=== PATIENT | female | born 1985 | race Caucasian/White ===

== ENCOUNTER 2016-12-06 17:28 | Emergency (ER) | payer MEDICAID ==
[~2016-12-06] VITALS: Ht 177.8 cm; Wt 65.9 kg
[2016-12-06 17:36] VITALS: Ht 177.8 cm; Wt 65.9 kg
--- NOTE | 2016-12-06 17:44 | ERA ---
ER Documentation Chief Complaint Date/Time DATE: 12/06/16 TIME: 17:44 Chief Complaint "I WANT TO CUT MYSELF WITH RAZOR BLADE" HPI The patient is a 31-year-old female, presenting to the ER because of acute suicidal ideation. She complains of auditory hallucinations that asked her to cut herself. She denies visual hallucination, homicidal ideation. She denies headache, neck pain, chest pain, abdominal pain, vomiting, diarrhea, dysuria. She smokes, drinks, does not amphetamine Past medical history: Schizophrenia Past surgical history: 2 ROS All systems reviewed and are negative except as per history of present illness. Medications Home Meds No Active Prescriptions or Reported Meds Allergies Allergies: Coded Allergies: Penicillins (Verified Allergy, Mild, 08/24/16) PMhx/Soc Hx Psychiatric Problems: Yes (Schizophrenia) Hx Substance Use: Yes Physical Exam Vitals Vital Signs Date Time Temp Pulse Resp B/P Pulse Ox O2 Delivery O2 Flow Rate FiO2 12/06/16 17:36 98.2 129 19 138/95 100 Physical Exam Const: No acute distress. Head: Atraumatic. Eyes: Normal Conjunctiva. ENT: Normal External Ears, Nose and Mouth. Neck: Full range of motion. No meningismus. Resp: Clear to auscultation bilaterally. Cardio: Regular but tachycardic Abd: Soft, non distended, normal bowel sounds, non tender. Skin: No petechiae or rashes. Back: No midline or flank tenderness. Ext: No cyanosis, or edema. Neur: Awake and alert. No focal deficit Psych: Depressed and suicidal Procedures/MDM MEDICAL MAKING DECISION: The patient is a 31-year-old female, presenting with acute suicidal ideation, substance abuse. The differential diagnoses considered include but are not limited to psychosis, drug-induced psychosis, decompensated psychiatric unit, anxiety attack, panic attack Departure Diagnosis: Primary Impression: Suicidal ideation Additional Impression: Substance abuse Condition: Stable Comments The patient is awaiting further psychiatric evaluation, pending on the labs The patient's blood pressure was elevated (>120/80) but appears stable without evidence of hypertension emergency or urgency. The patient was counseled about the risks of hypertension and urged to pursue outpatient monitoring and therapy within a week with their primary care physician. NOEMI GOODE MD Dec 06, 2016 17:44
[2016-12-06 18:38] LABS: ADD UMIC YES; URINE BILIRUBIN (Dip) NEGATIVE (NEGATIVE); URINE BLOOD (Dip) NEGATIVE (NEGATIVE); URINE COLOR YELLOW (YELLOW); URINE GLUCOSE (Dip) NEGATIVE (NEGATIVE); URINE KETONES (Dip) NEGATIVE (NEGATIVE); URINE LEUKOCYTE ESTERASE (Dip) 3+ (NEGATIVE); URINE NITRITE (Dip) NEGATIVE (NEGATIVE); URINE TOTAL PROTEIN (Dip) TRACE (NEGATIVE); URINE UROBILINOGEN (Dip) 0.2 E.U./dL (0.1-1.0)
[2016-12-06 18:54] LABS: BASOPHILS % 0.3 % (0.0-2.0); EOSINOPHILS % 0.2 % (0.0-7.0); HEMATOCRIT 33.4 % (37.0-47.0); HEMOGLOBIN 10.6 g/dl (12.0-16.0); LYMPHOCYTES # 1.6 10^3/ul (0.8-2.9); LYMPHOCYTES % 11.7 % (15.0-51.0); MEAN CORPUSCULAR HEMOGLOBIN 21.4 pg (29.0-33.0); MEAN CORPUSCULAR HGB CONC 31.6 g/dl (32.0-37.0); MEAN CORPUSCULAR VOLUME 67.6 fl (82.0-101.0); MEAN PLATELET VOLUME 8.1 fl (7.4-10.4); MONOCYTE # 0.5 10^3/ul (0.3-0.9); MONOCYTES % 3.5 % (0.0-11.0); NEUTROPHIL # 11.5 10^3/ul (1.6-7.5); NEUTROPHILS % 84.3 % (39.0-77.0); PLATELET COUNT 546 10^3/UL (140-440); RED BLOOD COUNT 4.94 10^6/ul (4.20-5.40); RED CELL DISTRIBUTION WIDTH 19.5 % (11.5-14.5); UNCORRECTED WBC 13.6 10^3/ul (4.8-10.8); WHITE BLOOD COUNT 13.6 10^3/ul (4.8-10.8)
[2016-12-06 18:57] LABS: BACTERIA,URINE MANY; SQUAMOUS EPITHELIAL CELL,UR MANY; URINE RBCS NONE SEEN /HPF (0)
[2016-12-06 18:57] LABS: ALBUMIN 4.1 g/dl (3.3-4.9)
[2016-12-06 18:58] LABS: CHLORIDE 101 mmol/L (97-110); POTASSIUM 4.1 mmol/L (3.5-5.1); SODIUM 141 mmol/L (135-144)
[2016-12-06 19:00] LABS: ALKALINE PHOSPHATASE 107 IU/L (42-121); ANION GAP 18 (8-16); ASPARTATE AMINO TRANSFERASE 20 IU/L (15-46); BLOOD UREA NITROGEN 25 mg/dl (7-20); CARBON DIOXIDE 26 mmol/L (21-31); TOTAL PROTEIN 7.6 g/dl (6.1-8.1)
[2016-12-06 19:01] LABS: ALANINE AMINOTRANSFERASE 22 IU/L (13-69); ALBUMIN/GLOBULIN RATIO 1.17; CALCIUM 9.4 mg/dl (8.4-10.2); ETHANOL < 10.0 mg/dl; GLUCOSE 99 mg/dl (70-220); SALICYLATE < 1.0 mg/dl (5.0-30.0)
[2016-12-06 19:02] LABS: ACETAMINOPHEN < 10.0 ug/ml (10.0-30.0)
[2016-12-06 19:05] LABS: CONDITION 1; LH ANALYZER COMMENTS 1
[2016-12-06 19:08] LABS: BARBITURATES Negative (NEGATIVE); BENZODIAZEPINES Negative (NEGATIVE); CANNABINOIDS Negative (NEGATIVE); COCAINE Negative (NEGATIVE); OPIATES Negative (NEGATIVE)
[2016-12-06] MEDS ORDERED: TRIMETHOPRIM/SULFAMETHOX (DS) TAB PO ONE ×2 (19:30)
--- NOTE | 2016-12-06 19:51 | PSY ---
Date/Time of Note Date/Time of Note DATE: 12/06/16 TIME: 19:46 Psychiatric Subjective Eval Consent Pt consented to telemedicine: Yes Subjective Evaluation Patient location: emergency Chief Complaint: "I WANT TO CUT MYSELF WITH RAZOR BLADE" Reason for consult: Suicidal ideation History of present illness Patient is a 31 year old female diagnosed with schizophrenia six years ago who presents to the ER with complaints of command auditory hallucinations telling her to kill herself. Her voices are telling her to use a knife to cut herself. She has acted on these voices in the past and does not feel safe. She also reports meth use about four hours ago. Patient has been hospitalized in the past. She has fallen out of mental health treatment, however. She is not taking any medications nor does she have outpatient psychiatry/therapy. 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 [employer] Objective Eval Mental Status Examination: Appearance: Groomed Eye Contact: Fair Psychomotor Activity: Slow Behavior: Cooperative Speech: Monotone AFFECT: Flat Mood: Other (not distressed) Though Process: Linear Thought Content: Hallucinations Suicidal: Yes Homicidal: No On 72 hour hold: No Orientation: x3 Cognition: Alert Insight: Impared Judgement: Impared Laboratory Results Laboratory Tests Test 12/06/16 18:16 12/06/16 18:40 Urine Amorphous Urates MANY Urine Amphetamines Screen POSITIVE Urine Bacteria MANY Urine Barbiturates Negative Urine Benzodiazepines Screen Negative Urine Bilirubin NEGATIVE Urine Cannabinoids Negative Urine Clarity CLOUDY Urine Cocaine Screen Negative Urine Color YELLOW Urine Glucose NEGATIVE% Urine Hemoglobin NEGATIVE Urine Ketones NEGATIVE Urine Leukocyte Esterase 3+ Urine Microscopic RBC NONE SEEN/HPF Urine Microscopic WBC >50/HPF Urine Nitrite NEGATIVE Urine Opiates Screen Negative Urine Specific [place] 1.025 Urine Squamous Epithelial Cells MANY Urine Total Protein TRACE Urine Urobilinogen 0.2 E.U./dL Urine pH 7.0 Acetaminophen Level < 10.0ug/ml Alanine Aminotransferase (ALT/SGPT) 22IU/L Albumin 4.1g/dl Albumin/Globulin Ratio 1.17 Alkaline Phosphatase 107IU/L Anion Gap 18 Aspartate Amino Transf (AST/SGOT) 20IU/L Basophils # 0.010^3/ul Basophils % 0.3% Blood Morphology Comment Blood Urea Nitrogen 25mg/dl Calcium Level 9.4mg/dl Carbon Dioxide Level 26mmol/L Chloride Level 101mmol/L Creatinine 0.70mg/dl Direct Bilirubin 0.00mg/dl Eosinophils # 0.010^3/ul Eosinophils % 0.2% Ethyl Alcohol Level < 10.0mg/dl Globulin 3.50g/dl Glucose Level 99mg/dl Hematocrit 33.4% Hemoglobin 10.6g/dl Indirect Bilirubin 0.0mg/dl Lymphocytes # 1.610^3/ul Lymphocytes % 11.7% Mean Corpuscular Hemoglobin 21.4pg Mean Corpuscular Hemoglobin Concent 31.6g/dl Mean Corpuscular Volume 67.6fl Mean Platelet Volume 8.1fl Monocytes # 0.510^3/ul Monocytes % 3.5% Neutrophils # 11.510^3/ul Neutrophils % 84.3% Nucleated Red Blood Cells # 0.010^3/ul Nucleated Red Blood Cells % 0.0/100WBC Platelet Count 02342^3/UL Potassium Level 4.1mmol/L Red Blood Count 4.9410^6/ul Red Cell Distribution Width 19.5% Salicylates Level < 1.0mg/dl Sodium Level 141mmol/L Total Bilirubin 0.0mg/dl Total Protein 7.6g/dl White Blood Count 13.610^3/ul Assessment and Plan Assessment/Diagnosis [place] I: Unspecified Psychotic Disorder F29 - Schizophrenia versus Meth Use or combination of both. Recommendation/Plan Medication Management Per inpatient psychiatry Psychotherapy N.A Pt. Caregiver/Family Education N./A Follow-up/Disposition Recommend hold and transfer to inpatient psychiatry. Patient reporting command auditory hallucinations to kill herself and does not feel safe out of the hospital. 5150 Recommendation: Place Hold NATHALIA BHARDWAJ Dec 06, 2016 19:51
[2016-12-06] MEDS ORDERED: OLAN2.5T4 PO (20:07)
[2016-12-06 21:48] VITALS: BP 129/79; PULSE 110; RESP 16; TEMP 99
== END 2016-12-07 00:30 | disposition short-term general hospital (02) ==
LOC: E/R 17:28
DX: R44.0 Auditory hallucinations (principal); R45.851 Suicidal ideations; F19.90 Other psychoactive substance use, unspecified, uncomplicated; N30.00 Acute cystitis without hematuria; F17.210 Nicotine dependence, cigarettes, uncomplicated; E11.9 Type 2 diabetes mellitus without complications
CPT/HCPCS: 36415; 80053; 80306; 80307; 81001; 85025; Z7502; Z7610; 81003

== ENCOUNTER 2017-01-09 14:11 | Emergency (ER) | payer MEDICAID, OTHER ==
[~2017-01-09] VITALS: Wt 72.6 kg
[~2017-01-09 14:11] MED LIST: OLAN2.5T4 PO
[2017-01-09] MEDS ORDERED: LORAZEPAM 1 MG TAB PO ONE (14:30)
[2017-01-09 15:58] LABS: BASOPHILS % 0.2 % (0.0-2.0); EOSINOPHILS % 0.2 % (0.0-7.0); HEMATOCRIT 36.4 % (37.0-47.0); HEMOGLOBIN 11.8 g/dl (12.0-16.0); LYMPHOCYTES # 1.2 10^3/ul (0.8-2.9); LYMPHOCYTES % 9.5 % (15.0-51.0); MEAN CORPUSCULAR HEMOGLOBIN 22.2 pg (29.0-33.0); MEAN CORPUSCULAR HGB CONC 32.3 g/dl (32.0-37.0); MEAN CORPUSCULAR VOLUME 68.8 fl (82.0-101.0); MEAN PLATELET VOLUME 8.7 fl (7.4-10.4); MONOCYTE # 0.2 10^3/ul (0.3-0.9); MONOCYTES % 1.8 % (0.0-11.0); NEUTROPHIL # 11.4 10^3/ul (1.6-7.5); NEUTROPHILS % 88.3 % (39.0-77.0); PLATELET COUNT 378 10^3/UL (140-440); RED CELL DISTRIBUTION WIDTH 20.6 % (11.5-14.5); UNCORRECTED WBC 12.9 10^3/ul (4.8-10.8); WHITE BLOOD COUNT 12.9 10^3/ul (4.8-10.8)
[2017-01-09 15:58] LABS: ADD UMIC YES; URINE BILIRUBIN (Dip) NEGATIVE (NEGATIVE); URINE BLOOD (Dip) NEGATIVE (NEGATIVE); URINE GLUCOSE (Dip) NEGATIVE (NEGATIVE); URINE KETONES (Dip) NEGATIVE (NEGATIVE); URINE LEUKOCYTE ESTERASE (Dip) 3+ (NEGATIVE); URINE NITRITE (Dip) NEGATIVE (NEGATIVE); URINE TOTAL PROTEIN (Dip) TRACE (NEGATIVE); URINE UROBILINOGEN (Dip) 0.2 E.U./dL (0.1-1.0)
[2017-01-09 16:06] LABS: CONDITION 1; LH ANALYZER COMMENTS 1
[2017-01-09 16:07] LABS: URINE COLOR YELLOW (YELLOW)
[2017-01-09 16:11] LABS: BACTERIA,URINE MODERATE; SQUAMOUS EPITHELIAL CELL,UR MANY; URINE RBCS 0-2 /HPF (0)
[2017-01-09] MEDS ORDERED: CEPH-443 PO (16:14)
--- NOTE | 2017-01-09 16:20 | ERD ---
ER Documentation Chief Complaint Date/Time DATE: 01/09/17 TIME: 16:16 Chief Complaint SUICIDAL IDEATION FOR THE PAST DAY. NO ETOH. METH USE TODAY. HPI 31-year-old woman states she is here for evaluation for feeling anxious and suicidal after using methamphetamine about 2-3 hours ago while at home. She was just discharged from [facility] facility after a seven-day psychiatric admission. She was given psychiatric prescriptions and went home instead of filling her prescriptions and using them as prescribed she used methamphetamine. Patient has no definitive written or verbal plan on how she is going to kill herself. She has no homicidal ideation, she denies chest pain or shortness of breath, no vomiting or diarrhea, no headache or blurry vision. Patient denies hematuria or dysuria. ROS All systems reviewed and are negative except as per history of present illness. Medications Home Meds Active Scripts Cephalexin* (Keflex*) 500 Mg Capsule, 500 MG PO QID for 5 Days, CAP Prov:OLESYA PRESTON MD 01/09/17 Discontinued Reported Medications Olanzapine* (Zyprexa*) Unknown Strength Tablet, MG PO DAILY, #30 TAB 12/06/16 Allergies Allergies: Coded Allergies: Penicillins (Verified Allergy, Mild, 01/09/17) PMhx/Soc Drug abuse including methamphetamines, depression, schizophrenia History of Surgery: Yes ( x 2) Anesthesia Reaction: No Hx Neurological Disorder: No Hx Respiratory Disorders: No Hx Cardiac Disorders: No Hx Psychiatric Problems: Yes (Schizophrenia, depression) Hx Miscellaneous Medical Probl: Yes (diabetes) Hx Alcohol Use: Yes Hx Substance Use: Yes (meth) Hx Tobacco Use: Yes Smoking Status: Former smoker FmHx Family History: No diabetes Physical Exam Vitals Vital Signs Date Time Temp Pulse Resp B/P Pulse Ox O2 Delivery O2 Flow Rate FiO2 01/09/17 14:17 98.6 145 20 138/91 98 Physical Exam GENERAL: Well-developed, well-nourished, well-hydrated, in no apparent distress , looks nontoxic in appearance HEENT: Moist mucous membranes, pink conjunctiva, no cervical spine tenderness or step-off deformities, no goiter, no jaundice or icterus, extraocular movements intact without pain. No submandibular induration, and no pharyngeal erythema NEURO: Alert and oriented 3, cranial nerves II through XII intact bilaterally, pupils equal round reactive to light, no focal deficits or facial asymmetry, sensation intact distally Strength 5/5 in upper and lower extremities bilaterally CARDIAC: Regular rate and rhythm, no murmurs rubs or gallops LUNGS: Clear bilaterally no wheezing crackles or stridor ABDOMEN: Soft nontender, no guarding, no rigidity, no rebound, no psoas sign no obturator sign. Normoactive bowel sounds SKIN: Warm and dry to touch, no abrasions, contusions, or hematomas, no lacerations, no ecchymosis, no target lesions, and without ulcers EXTREMITIES: No clubbing cyanosis or edema, calves are bilaterally symmetrical, no Homans sign, no popliteal cord sign. Distal pulses equal and bilateral PSYCH: Normal affect without agitation or irritability Result Diagram: 01/09/17 1450 01/09/17 1450 Results 24 hrs Laboratory Tests Test 01/09/17 14:50 01/09/17 15:20 Acetaminophen Level < 10.0ug/ml Alanine Aminotransferase (ALT/SGPT) 24IU/L Albumin 4.4g/dl Albumin/Globulin Ratio 1.22 Alkaline Phosphatase 105IU/L Anion Gap 21 Aspartate Amino Transf (AST/SGOT) 26IU/L Basophils # 0.010^3/ul Basophils % 0.2% Blood Morphology Comment Blood Urea Nitrogen 30mg/dl Calcium Level 9.7mg/dl Carbon Dioxide Level 22mmol/L Chloride Level 105mmol/L Creatinine 0.93mg/dl Direct Bilirubin 0.00mg/dl Eosinophils # 0.010^3/ul Eosinophils % 0.2% Ethyl Alcohol Level < 10.0mg/dl Globulin 3.60g/dl Glucose Level 97mg/dl Hematocrit 36.4% Hemoglobin 11.8g/dl Indirect Bilirubin 0.0mg/dl Lymphocytes # 1.210^3/ul Lymphocytes % 9.5% Mean Corpuscular Hemoglobin 22.2pg Mean Corpuscular Hemoglobin Concent 32.3g/dl Mean Corpuscular Volume 68.8fl Mean Platelet Volume 8.7fl Monocytes # 0.210^3/ul Monocytes % 1.8% Neutrophils # 11.410^3/ul Neutrophils % 88.3% Nucleated Red Blood Cells # 0.010^3/ul Nucleated Red Blood Cells % 0.0/100WBC Platelet Count 44793^3/UL Potassium Level 4.4mmol/L Red Blood Count 5.3010^6/ul Red Cell Distribution Width 20.6% Salicylates Level < 1.0mg/dl Sodium Level 144mmol/L Total Bilirubin 0.0mg/dl Total Protein 8.0g/dl White Blood Count 12.910^3/ul Urine Amphetamines Screen Positive Urine Bacteria MODERATE Urine Barbiturates Negative Urine Benzodiazepines Screen Negative Urine Bilirubin NEGATIVE Urine Cannabinoids Negative Urine Clarity CLOUDY Urine Cocaine Screen Negative Urine Color YELLOW Urine Glucose NEGATIVE% Urine Hemoglobin NEGATIVE Urine Ketones NEGATIVE Urine Leukocyte Esterase 3+ Urine Microscopic RBC 0-2/HPF Urine Microscopic WBC >50/HPF Urine Nitrite NEGATIVE Urine Opiates Screen Negative Urine Specific [place] >=1.030 Urine Squamous Epithelial Cells MANY Urine Total Protein TRACE Urine Urobilinogen 0.2 E.U./dL Urine pH 6.0 Current Medications Medications (Trade) Dose Ordered Sig/Robbie Route PRN Reason Start Time Stop Time Status Last Admin Dose Admin Lorazepam (Ativan) 1 mg ONCE ONCE PO 01/09/17 14:30 01/09/17 14:34 DC 01/09/17 16:36 Cephalexin (Keflex) 500 mg ONCE ONCE PO 01/09/17 16:30 01/09/17 16:31 DC 01/09/17 16:36 Procedures/MDM Security one-to-one watch was established and tele-psychiatrist evaluation has been ordered. For her symptoms I administered lorazepam 1 mg p.o. with good response. CBC and electrolytes were normal, test was negative, urine analysis was concerning for urinary tract infection. I treated her here with cephalexin 500 mg p.o. 1. Patient's behavioral symptoms have stabilized while in the department. Patient is medically cleared and appropriate for psychiatric evaluation and work up. No e/o neurologic, toxic, infectious, or metabolic cause. I am comfortable discharging this patient after recommending she stop using methamphetamines and instead fill the psychiatric prescriptions that were given to her just today by her [facility] psychiatrist. I will also treat her as an outpatient for urinary tract infection with cephalexin 4 times daily 5 days. Tele-psychiatrist did evaluate the patient and felt comfortable placing her on a voluntary hold given her vague symptomatology and recent inpatient psychiatric workup. I reviewed the psychiatrist consultation note. I spoke to the patient and she feels much better and she agreed to stop using methamphetamines and to instead go home and fill her psychiatric medications and begin using them as prescribed. Differential diagnoses considered, included but not limited to acute intoxication, decompensated psychiatric illness, cervicitis, sepsis, stroke, meningitis, encephalitis, pneumonia, appendicitis, cholecystitis, bowel obstruction, pyelonephritis, nephrolithiasis, cystitis, as well as metabolic, hematologic, and electrolyte abnormalities. As well as abscess, cellulitis, fractures, and dislocations. Patient feels much better at this time, and vital signs are normal, symptoms have improved. I did give strict instructions to return to the ED if symptoms continue or worsen, patient will otherwise follow-up with primary care physician. Patient understood instructions and agreed to plan. Departure Diagnosis: Primary Impression: UTI (urinary tract infection) Urinary tract infection type: acute cystitis Hematuria presence: without hematuria Qualified Code: N30.00 - Acute cystitis without hematuria Additional Impressions: Methamphetamine abuse Psychosis Psychosis type: brief psychotic disorder Qualified Code: F23 - Brief psychotic disorder Condition: Good Patient Instructions: Understanding Methamphetamine Abuse and Addiction, Bladder Infection, Female (Adult) OLESYA PRESTON MD Jan 09, 2017 16:20
[2017-01-09] MEDS ORDERED: CEPHALEXIN 500 MG CAP PO ONE (16:30)
[2017-01-09 16:34] LABS: OPIATES Negative (NEGATIVE)
[2017-01-09 16:35] LABS: BARBITURATES Negative (NEGATIVE); BENZODIAZEPINES Negative (NEGATIVE); CANNABINOIDS Negative (NEGATIVE); COCAINE Negative (NEGATIVE)
[2017-01-09 16:37] LABS: ALBUMIN 4.4 g/dl (3.3-4.9); CHLORIDE 105 mmol/L (97-110)
[2017-01-09 16:38] LABS: POTASSIUM 4.4 mmol/L (3.5-5.1); SODIUM 144 mmol/L (135-144)
[2017-01-09 16:40] LABS: ALANINE AMINOTRANSFERASE 24 IU/L (13-69); ALBUMIN/GLOBULIN RATIO 1.22; ALKALINE PHOSPHATASE 105 IU/L (42-121); ANION GAP 21 (8-16); ASPARTATE AMINO TRANSFERASE 26 IU/L (15-46); BLOOD UREA NITROGEN 30 mg/dl (7-20); CARBON DIOXIDE 22 mmol/L (21-31); CREATININE 0.93 mg/dl (0.44-1.00); GLUCOSE 97 mg/dl (70-220)
[2017-01-09 16:41] LABS: CALCIUM 9.7 mg/dl (8.4-10.2)
[2017-01-09 16:44] LABS: ACETAMINOPHEN < 10.0 ug/ml (10.0-30.0); ETHANOL < 10.0 mg/dl; SALICYLATE < 1.0 mg/dl (5.0-30.0)
--- NOTE | 2017-01-09 19:09 | PSY ---
Date/Time of Note Date/Time of Note DATE: 01/09/17 TIME: 19:04 Psychiatric Subjective Eval Consent Pt consented to telemedicine: Yes Subjective Evaluation Patient location: emergency Chief Complaint: SUICIDAL IDEATION FOR THE PAST DAY. NO ETOH. METH USE TODAY. Reason for consult: Suicidal ideation History of present illness Patient is a 31 year old female with a history of schizophrenia and meth abuse who was recently released from an inpatient hospitalization. Patient went home. [place] unsafe. Started having suicidal thoughts with ideas of cutting herself with scissors. She reported command auditory hallucinations telling her to kill herself. She was discharged on medication but does recall the name of her medications. Past psychiatric history See above Hospitalization: yes Family History Denies Medical history Problems Medical Problems: (1) Methamphetamine abuse Status: Acute (2) Substance abuse Status: Acute (3) Suicidal ideation Status: Acute (4) UTI (urinary tract infection) Status: Acute Allergies: Coded Allergies: Penicillins (Verified Allergy, Mild, 12/06/16) Substance Abuse Substance use: No known substance abuse Substance abuse history: Yes Social History Marital status: single DPA/Conservatorship: No Occupation/Fci: Unemployed Psychiatric Objective Eval Mental Status Examination: Appearance: Groomed Eye Contact: Fair Psychomotor Activity: Slow Behavior: Cooperative Speech: Clear AFFECT: Other (Superficial and inappropriate) Mood: Depressed Though Process: Linear Thought Content: Hallucinations Suicidal: Yes Homicidal: No On 72 hour hold: No Orientation: x4 Cognition: Alert Insight: Impared Judgement: Impared Laboratory Results Laboratory Tests Test 01/09/17 14:50 01/09/17 15:20 Acetaminophen Level < 10.0ug/ml Alanine Aminotransferase (ALT/SGPT) 24IU/L Albumin 4.4g/dl Albumin/Globulin Ratio 1.22 Alkaline Phosphatase 105IU/L Anion Gap 21 Aspartate Amino Transf (AST/SGOT) 26IU/L Basophils # 0.010^3/ul Basophils % 0.2% Blood Morphology Comment Blood Urea Nitrogen 30mg/dl Calcium Level 9.7mg/dl Carbon Dioxide Level 22mmol/L Chloride Level 105mmol/L Creatinine 0.93mg/dl Direct Bilirubin 0.00mg/dl Eosinophils # 0.010^3/ul Eosinophils % 0.2% Ethyl Alcohol Level < 10.0mg/dl Globulin 3.60g/dl Glucose Level 97mg/dl Hematocrit 36.4% Hemoglobin 11.8g/dl Indirect Bilirubin 0.0mg/dl Lymphocytes # 1.210^3/ul Lymphocytes % 9.5% Mean Corpuscular Hemoglobin 22.2pg Mean Corpuscular Hemoglobin Concent 32.3g/dl Mean Corpuscular Volume 68.8fl Mean Platelet Volume 8.7fl Monocytes # 0.210^3/ul Monocytes % 1.8% Neutrophils # 11.410^3/ul Neutrophils % 88.3% Nucleated Red Blood Cells # 0.010^3/ul Nucleated Red Blood Cells % 0.0/100WBC Platelet Count 67090^3/UL Potassium Level 4.4mmol/L Red Blood Count 5.3010^6/ul Red Cell Distribution Width 20.6% Salicylates Level < 1.0mg/dl Sodium Level 144mmol/L Total Bilirubin 0.0mg/dl Total Protein 8.0g/dl White Blood Count 12.910^3/ul Urine Amphetamines Screen Positive Urine Bacteria MODERATE Urine Barbiturates Negative Urine Benzodiazepines Screen Negative Urine Bilirubin NEGATIVE Urine Cannabinoids Negative Urine Clarity CLOUDY Urine Cocaine Screen Negative Urine Color YELLOW Urine Glucose NEGATIVE% Urine Hemoglobin NEGATIVE Urine Ketones NEGATIVE Urine Leukocyte Esterase 3+ Urine Microscopic RBC 0-2/HPF Urine Microscopic WBC >50/HPF Urine Nitrite NEGATIVE Urine Opiates Screen Negative Urine Specific [place] >=1.030 Urine Squamous Epithelial Cells MANY Urine Total Protein TRACE Urine Urobilinogen 0.2 E.U./dL Urine pH 6.0 Assessment and Plan Assessment/Diagnosis [place] I: Unspecified psychotic disorder, Stimulant Use Disorder Recommendation/Plan Medication Management Per inpatient psychiatry Psychotherapy N/A Pt. Caregiver/Family Education N/A Follow-up/Disposition Please transfer to inpatient psychiatry. Patient is willing to go and can transfer voluntarily. If a 5150 is needed for transport, it can be justified based on danger to self. 5150 Recommendation: Voluntary admission unless needed for transport. NATHALIA BHARDWAJ Jan 09, 2017 19:09
[2017-01-09 19:31] VITALS: BP 134/88; PULSE 107; RESP 20; TEMP 98.3
== END 2017-01-09 19:31 | disposition home or self-care (01) ==
LOC: E/R 14:11
DX: N30.00 Acute cystitis without hematuria (principal); F23 Brief psychotic disorder; F15.10 Other stimulant abuse, uncomplicated; E11.9 Type 2 diabetes mellitus without complications; F17.210 Nicotine dependence, cigarettes, uncomplicated
CPT/HCPCS: 80053; 80306; 80307; 81001; 85025; Z7502; Z7610; 81003; 99285

== ENCOUNTER 2017-04-17 19:04 | Emergency (ER) | payer OTHER ==
[~2017-04-17] VITALS: Ht 175.3 cm; Wt 65.9 kg
[~2017-04-17 19:04] MED LIST changes: +CEPH-443 PO; -OLAN2.5T4 PO
[2017-04-17 19:13] VITALS: Ht 175.3 cm; Wt 65.9 kg
[2017-04-17 21:30] VITALS: BP 131/81; PULSE 95; RESP 16; TEMP 98.9
[2017-04-17 21:34] LABS: ADD SCAN DIFF NO
[2017-04-17 21:37] LABS: BASOPHILS % 0.4 % (0.0-2.0); EOSINOPHILS # 0.2 10^3/ul (0.0-0.5); EOSINOPHILS % 2.3 % (0.0-7.0); HEMATOCRIT 38.4 % (37.0-47.0); HEMOGLOBIN 11.5 g/dl (12.0-16.0); LYMPHOCYTES # 2.1 10^3/ul (0.8-2.9); LYMPHOCYTES % 20.9 % (15.0-51.0); MEAN CORPUSCULAR HEMOGLOBIN 23.4 pg (29.0-33.0); MEAN CORPUSCULAR HGB CONC 29.9 g/dl (32.0-37.0); MEAN CORPUSCULAR VOLUME 78.2 fl (82.0-101.0); MEAN PLATELET VOLUME 9.8 fl (7.4-10.4); MONOCYTE # 0.6 10^3/ul (0.3-0.9); MONOCYTES % 6.4 % (0.0-11.0); NEUTROPHIL # 6.9 10^3/ul (1.6-7.5); NEUTROPHILS % 69.6 % (39.0-77.0); PLATELET COUNT 373 10^3/UL (140-415); RED BLOOD COUNT 4.91 10^6/ul (4.20-5.40); RED CELL DISTRIBUTION WIDTH 20.5 % (11.5-14.5); WHITE BLOOD COUNT 9.9 10^3/ul (4.8-10.8)
[2017-04-17 22:01] LABS: ALANINE AMINOTRANSFERASE 36 IU/L (13-69); ALBUMIN 3.9 g/dl (3.3-4.9); ALBUMIN/GLOBULIN RATIO 1.02; ALKALINE PHOSPHATASE 101 IU/L (42-121); ANION GAP 9 (8-16); ASPARTATE AMINO TRANSFERASE 20 IU/L (15-46); BLOOD UREA NITROGEN 13 mg/dl (7-20); CALCIUM 9.1 mg/dl (8.4-10.2); CARBON DIOXIDE 28 mmol/L (21-31); CHLORIDE 106 mmol/L (97-110); CREATININE 0.66 mg/dl (0.44-1.00); GLUCOSE 101 mg/dl (70-220); POTASSIUM 4.1 mmol/L (3.5-5.1); SODIUM 139 mmol/L (135-144); TOTAL PROTEIN 7.7 g/dl (6.1-8.1)
[2017-04-17 22:16] LABS: ACETAMINOPHEN < 10.0 ug/ml (10.0-30.0); ETHANOL < 10.0 mg/dl; SALICYLATE < 1.0 mg/dl (5.0-30.0)
[2017-04-17] MEDS ORDERED: DIPHENHYDRAMINE 50 MG INJ IM ONE (22:30)
[2017-04-17 22:48] LABS: ADD UMIC YES; URINE BILIRUBIN (Dip) NEGATIVE (NEGATIVE); URINE BLOOD (Dip) NEGATIVE (NEGATIVE); URINE COLOR LT. YELLOW (YELLOW); URINE GLUCOSE (Dip) NEGATIVE (NEGATIVE); URINE KETONES (Dip) NEGATIVE (NEGATIVE); URINE LEUKOCYTE ESTERASE (Dip) 1+ (NEGATIVE); URINE NITRITE (Dip) NEGATIVE (NEGATIVE); URINE TOTAL PROTEIN (Dip) NEGATIVE (NEGATIVE); URINE UROBILINOGEN (Dip) 0.2 E.U./dL (0.1-1.0)
--- NOTE | 2017-04-17 22:54 | PSY ---
Date/Time of Note Date/Time of Note DATE: 04/17/17 TIME: 22:48 Psychiatric Subjective Eval Consent Pt consented to telemedicine: Yes Subjective Evaluation Patient location: emergency Chief Complaint: STATES SI BUT NO PLAN +DRUG USE METH TODAY. Reason for consult: Evaluate suicidal ideation History of present illness Pt reports depression and suicidal ideation about four hours ago. She has just used meth, got scared and came to the ER. However, she is now reporting to ER personnel and to me that she feels better. She states she is not suicidal. Pt reports that she "ate a meal" and rested. She now would like to go home. Pt reports her moods are good. She denies hallucinations and delusions. She has no access to guns or other means. Pt does not want to be admitted to inpatient psychiatry. Past psychiatric history Was admitted to an inpatient unit one month ago. Was given Zyprexa. Did not continue with the medication because did not think it did anything. She has no outpatient care. She admits to meth use. Hospitalization: yes Family History Denies Medical history Problems Medical Problems: (1) Methamphetamine abuse Status: Acute (2) Psychosis Status: Acute (3) Substance abuse Status: Acute (4) Suicidal ideation Status: Acute (5) UTI (urinary tract infection) Status: Acute Allergies: Coded Allergies: Penicillins (Verified Allergy, Mild, 04/17/17) Substance Abuse Substance abuse history: Yes (Meth) Prior substance abuse treatmen: No (Not interested in treatment or help at this time) Social History Marital status: single Level of education: HS DPA/Conservatorship: No Occupation/Group Home: N/A Psychiatric Objective Eval Mental Status Examination: Appearance: Groomed Eye Contact: Good Psychomotor Activity: Normal Behavior: Friendly, Cooperative Speech: Clear AFFECT: Appropriate Mood: Appropriate/Full Though Process: Linear Thought Content: Normal Suicidal: No Homicidal: No On 72 hour hold: No Cognition: Alert Insight: Intact Judgement: Impared Attention Span: Intact Laboratory Results Laboratory Tests Test 04/17/17 21:23 04/17/17 22:16 White Blood Count 9.910^3/ul Red Blood Count 4.9110^6/ul Hemoglobin 11.5g/dl Hematocrit 38.4% Mean Corpuscular Volume 78.2fl Mean Corpuscular Hemoglobin 23.4pg Mean Corpuscular Hemoglobin Concent 29.9g/dl Red Cell Distribution Width 20.5% Platelet Count 43943^3/UL Mean Platelet Volume 9.8fl Neutrophils % 69.6% Lymphocytes % 20.9% Monocytes % 6.4% Eosinophils % 2.3% Basophils % 0.4% Nucleated Red Blood Cells % 0.0/100WBC Neutrophils # 6.910^3/ul Lymphocytes # 2.110^3/ul Monocytes # 0.610^3/ul Eosinophils # 0.210^3/ul Basophils # 0.010^3/ul Nucleated Red Blood Cells # 0.010^3/ul Sodium Level 139mmol/L Potassium Level 4.1mmol/L Chloride Level 106mmol/L Carbon Dioxide Level 28mmol/L Anion Gap 9 Blood Urea Nitrogen 13mg/dl Creatinine 0.66mg/dl Glucose Level 101mg/dl Calcium Level 9.1mg/dl Total Bilirubin 0.0mg/dl Direct Bilirubin 0.00mg/dl Indirect Bilirubin 0.0mg/dl Aspartate Amino Transf (AST/SGOT) 20IU/L Alanine Aminotransferase (ALT/SGPT) 36IU/L Alkaline Phosphatase 101IU/L Total Protein 7.7g/dl Albumin 3.9g/dl Globulin 3.80g/dl Albumin/Globulin Ratio 1.02 Salicylates Level < 1.0mg/dl Acetaminophen Level < 10.0ug/ml Ethyl Alcohol Level < 10.0mg/dl Urine Color LT. YELLOW Urine Clarity CLEAR Urine pH 6.5 Urine Specific [place] 1.020 Urine Ketones NEGATIVE Urine Nitrite NEGATIVE Urine Bilirubin NEGATIVE Urine Urobilinogen 0.2 E.U./dL Urine Leukocyte Esterase 1+ Urine Hemoglobin NEGATIVE Urine Glucose NEGATIVE% Urine Total Protein NEGATIVE Assessment and Plan Assessment/Diagnosis [place] I: Stimulant Use Disorder, Unspecified Anxiety Disorder Recommendation/Plan Medication Management None recommended. Discussed with her restarting Zyprexa. Pt declines. Psychotherapy Psychoeducation regarding meth Pt. Caregiver/Family Education N/A Follow-up/Disposition Discharge to self. Pt given option of inpatient psychiatry. Does not want to go. She does not appear to meet the criteria for involuntary hold. Recommend she consider local resources for support to stay sober. NATHALIA BHARDWAJ April 17, 2017 22:54
[2017-04-17 22:59] LABS: BACTERIA,URINE OCCASIONAL
[2017-04-17 23:31] LABS: BARBITURATES NEGATIVE (NEGATIVE); BENZODIAZEPINES NEGATIVE (NEGATIVE); CANNABINOIDS NEGATIVE (NEGATIVE); COCAINE NEGATIVE (NEGATIVE); OPIATES NEGATIVE (NEGATIVE)
--- NOTE | 2017-04-17 23:51 | ERD ---
ER Documentation Chief Complaint Date/Time DATE: 04/17/17 TIME: 23:47 Chief Complaint STATES SI BUT NO PLAN +DRUG USE METH TODAY. HPI This 31-year-old female comes the emergency room feeling like she wants to hurt herself. She admits to taking meth earlier and it made her feel paranoid. States that she does not have any actual plan to hurt herself but got scared. She denies any other physical symptoms. She has no pain currently. ROS All systems reviewed and are negative except as per history of present illness. Medications Home Meds Discontinued Scripts Cephalexin* (Keflex*) 500 Mg Capsule, 500 MG PO QID for 5 Days, CAP Prov:OLESYA PRESTON MD 01/09/17 Allergies Allergies: Coded Allergies: Penicillins (Verified Allergy, Mild, 04/17/17) PMhx/Soc History of Surgery: Yes ( x 2) Anesthesia Reaction: No Hx Neurological Disorder: No Hx Respiratory Disorders: No Hx Cardiac Disorders: No Hx Psychiatric Problems: Yes (Schizophrenia, depression) Hx Miscellaneous Medical Probl: Yes (diabetes) Hx Alcohol Use: Yes (socially) Hx Substance Use: Yes (meth) Hx Tobacco Use: Yes Smoking Status: Unknown if ever smoked Physical Exam Vitals Vital Signs Date Time Temp Pulse Resp B/P Pulse Ox O2 Delivery O2 Flow Rate FiO2 04/17/17 19:13 99.1 115 18 139/87 99 Physical Exam Const: [] No distress Head: Atraumatic Eyes: Normal Conjunctiva, EOMI, PERRLA ENT: Normal External Ears, Nose and Mouth. Neck: Full range of motion..~ No meningismus. Resp: Clear to auscultation bilaterally Cardio: Regular mild tachycardia, no murmurs Abd: Soft, non tender, non distended. Normal bowel sounds Skin: No petechiae or rashes Back: No midline or flank tenderness Ext: No cyanosis, or edema Neur: Awake and alert and oriented 3, cranial nerves II through XII intact, no cerebellar deficit Psych: Appears anxious Result Diagram: 04/17/17212204/17/172122 Results 24 hrs Laboratory Tests Test 04/17/17 21:23 04/17/17 22:16 White Blood Count 9.910^3/ul Red Blood Count 4.9110^6/ul Hemoglobin 11.5g/dl Hematocrit 38.4% Mean Corpuscular Volume 78.2fl Mean Corpuscular Hemoglobin 23.4pg Mean Corpuscular Hemoglobin Concent 29.9g/dl Red Cell Distribution Width 20.5% Platelet Count 87608^3/UL Mean Platelet Volume 9.8fl Neutrophils % 69.6% Lymphocytes % 20.9% Monocytes % 6.4% Eosinophils % 2.3% Basophils % 0.4% Nucleated Red Blood Cells % 0.0/100WBC Neutrophils # 6.910^3/ul Lymphocytes # 2.110^3/ul Monocytes # 0.610^3/ul Eosinophils # 0.210^3/ul Basophils # 0.010^3/ul Nucleated Red Blood Cells # 0.010^3/ul Sodium Level 139mmol/L Potassium Level 4.1mmol/L Chloride Level 106mmol/L Carbon Dioxide Level 28mmol/L Anion Gap 9 Blood Urea Nitrogen 13mg/dl Creatinine 0.66mg/dl Glucose Level 101mg/dl Calcium Level 9.1mg/dl Total Bilirubin 0.0mg/dl Direct Bilirubin 0.00mg/dl Indirect Bilirubin 0.0mg/dl Aspartate Amino Transf (AST/SGOT) 20IU/L Alanine Aminotransferase (ALT/SGPT) 36IU/L Alkaline Phosphatase 101IU/L Total Protein 7.7g/dl Albumin 3.9g/dl Globulin 3.80g/dl Albumin/Globulin Ratio 1.02 Salicylates Level < 1.0mg/dl Acetaminophen Level < 10.0ug/ml Ethyl Alcohol Level < 10.0mg/dl Urine Color LT. YELLOW Urine Clarity CLEAR Urine pH 6.5 Urine Specific [place] 1.020 Urine Ketones NEGATIVE Urine Nitrite NEGATIVE Urine Bilirubin NEGATIVE Urine Urobilinogen 0.2 E.U./dL Urine Leukocyte Esterase 1+ Urine Microscopic RBC 2-5/HPF Urine Microscopic WBC 5-10/HPF Urine Epithelial Cells FEW Urine Bacteria OCCASIONAL Urine Hemoglobin NEGATIVE Urine Glucose NEGATIVE% Urine Total Protein NEGATIVE Urine Opiates Screen NEGATIVE Urine Barbiturates NEGATIVE Urine Amphetamines Screen Pending Urine Benzodiazepines Screen NEGATIVE Urine Cocaine Screen NEGATIVE Urine Cannabinoids NEGATIVE Current Medications Medications (Trade) Dose Ordered Sig/Robbie Route PRN Reason Start Time Stop Time Status Last Admin Dose Admin Diphenhydramine HCl (Benadryl) 50 mg ONCE ONCE IM 04/17/17 22:30 04/17/17 22:38 DC Procedures/MDM Methamphetamine abuse. She initially had thoughts of hurting herself. She was observed for several hours in the emergency room. After the first 45 minutes she stated that she was feeling much better and did not want to hurt herself and thought that she should not have been methamphetamines. Laboratories were obtained and the patient was medically cleared. Eventually she was evaluated by tele-psychiatry and still felt well and did not want to harm herself. Tachycardia resolved. I reinterviewed her and she is calm and reasonable. I talked to her about methamphetamine abuse and agree with discharging her in stable condition currently. Providing her list of substance abuse outpatient resources. Departure Diagnosis: Primary Impression: Methamphetamine abuse Condition: Stable Patient Instructions: Understanding Methamphetamine Abuse and Addiction Referrals: [facility] YOU HAVE RECEIVED A MEDICAL SCREENING EXAM AND THE RESULTS INDICATE THAT YOU DO NOT HAVE A CONDITION THAT REQUIRES URGENT TREATMENT IN THE EMERGENCY DEPARTMENT. FURTHER EVALUATION AND TREATMENT OF YOUR CONDITION CAN WAIT UNTIL YOU ARE SEEN IN YOUR DOCTORS OFFICE WITHIN THE NEXT 1-2 DAYS. IT IS YOUR RESPONSIBILITY TO MAKE AN APPOINTMENT FOR FOLOW-UP CARE. IF YOU HAVE A PRIMARY DOCTOR --you should call your primary doctor and schedule an appointment IF YOU DO NOT HAVE A PRIMARY DOCTOR YOU CAN CALL OUR PHYSICIAN REFERRAL HOTLINE AT IF YOU CAN NOT AFFORD TO SEE A PHYSICIAN YOU CAN CHOSE FROM THE FOLLOWING [facility] [address] [facility]. [facility] [address] [facility] [address] [facility] [address] [facility]. [facility] [place] [address] [facility]. [facility]. [address] Additional Instructions: Call your primary care doctor TOMORROW for an appointment during the next 1-2 days.See the doctor sooner or return here if your condition worsens before your appointment time. SHIRA MELTON DO April 17, 2017 23:51
[2017-04-18] MEDS ORDERED: LORAZEPAM 2 MG INJ IM ONE (00:30)
== END 2017-04-18 00:30 | disposition home or self-care (01) ==
LOC: E/R 19:04
DX: F15.10 Other stimulant abuse, uncomplicated (principal); E11.9 Type 2 diabetes mellitus without complications
CPT/HCPCS: 36415; 80053; 80306; 80307; 81001; 85025; Z7502; 99283

== ENCOUNTER 2017-05-11 21:18 | Emergency (ER) | payer OTHER ==
[~2017-05-11] VITALS: Ht 175.3 cm; Wt 68.0 kg
[2017-05-11 21:26] VITALS: Ht 175.3 cm; Wt 68.0 kg
[2017-05-11 21:57] LABS: URINE BLOOD (Dip) POC Negative (NEGATIVE)
--- NOTE | 2017-05-11 22:01 | ERA ---
ER Documentation Chief Complaint Date/Time DATE: 05/11/17 TIME: 22:00 Chief Complaint suicide thoughts no plan,depression,last meth used at 1500 today HPI The patient is a 31-year-old female, presenting to the ER because of acute suicidal ideation, denies any plan. She has not been taking her psychotropic medication, denies auditory or visual hallucination. She denies headache, neck pain, chest pain, dyspnea, abdominal pain, dysuria, diarrhea.. She does not drink, smokes socially, has been doing amphetamine Past medical history: Depression, anxiety, schizophrenia Past surgical history: None ROS All systems reviewed and are negative except as per history of present illness. Medications Home Meds Reported Medications Bupropion Hcl* (Wellbutrin SR*) Unknown Strength Tablet.sa, PO BID, TAB.SA 05/11/17 Allergies Allergies: Coded Allergies: Penicillins (Unverified Allergy, Mild, 05/11/17) PMhx/Soc History of Surgery: Yes ( x 2) Anesthesia Reaction: No Hx Neurological Disorder: No Hx Respiratory Disorders: No Hx Cardiac Disorders: No Hx Psychiatric Problems: Yes (Schizophrenia, depression) Hx Miscellaneous Medical Probl: Yes (diabetes) Hx Alcohol Use: Yes (socially) Hx Substance Use: Yes (meth) Hx Tobacco Use: Yes Physical Exam Vitals Vital Signs Date Time Temp Pulse Resp B/P Pulse Ox O2 Delivery O2 Flow Rate FiO2 05/11/17 21:26 98.9 122 18 131/80 99 Physical Exam Const: No acute distress. Head: Atraumatic. Eyes: Normal Conjunctiva. ENT: Normal External Ears, Nose and Mouth. Neck: Full range of motion. No meningismus. Resp: Clear to auscultation bilaterally. Cardio: Regular tachycardic Abd: Soft, non distended, normal bowel sounds, non tender. Skin: No petechiae or rashes. Back: No midline or flank tenderness. Ext: No cyanosis, or edema. Neur: Awake and alert. No focal deficit Psych: Depressed and suicidal. Result Diagram: 05/11/17222905/11/[id number] Results 24 hrs Laboratory Tests Test 05/11/17 21:50 05/11/17 22:00 05/11/17 22:30 Urine Color YELLOW Urine Clarity CLOUDY Urine pH 6.0 Urine Specific [place] 1.025 Urine Ketones NEGATIVE Urine Nitrite NEGATIVE Urine Bilirubin NEGATIVE Urine Urobilinogen 0.2 E.U./dL Urine Leukocyte Esterase 3+ Urine Microscopic RBC NONE SEEN/HPF Urine Microscopic WBC >50/HPF Urine Squamous Epithelial Cells MANY Urine Bacteria MODERATE Urine Trichomonas MANY Urine Hemoglobin NEGATIVE Urine Glucose NEGATIVE% Urine Total Protein TRACE Urine Opiates Screen Negative Urine Barbiturates Negative Urine Amphetamines Screen POSITIVE Urine Benzodiazepines Screen Negative Urine Cocaine Screen Negative Urine Cannabinoids Negative Bedside Urine pH (LAB) 6.0 Bedside Urine Protein (LAB) 1+ Bedside Urine Glucose (UA) Negative Bedside Urine Ketones (LAB) Trace Bedside Urine Blood Negative Bedside Urine Nitrite (LAB) Negative Bedside Urine Leukocyte Esterase (L 3+ White Blood Count 7.610^3/ul Red Blood Count 4.4710^6/ul Hemoglobin 10.5g/dl Hematocrit 34.5% Mean Corpuscular Volume 77.2fl Mean Corpuscular Hemoglobin 23.5pg Mean Corpuscular Hemoglobin Concent 30.4g/dl Red Cell Distribution Width 19.1% Platelet Count 94614^3/UL Mean Platelet Volume 10.0fl Neutrophils % 58.2% Lymphocytes % 29.2% Monocytes % 6.9% Eosinophils % 4.3% Basophils % 0.5% Nucleated Red Blood Cells % 0.0/100WBC Neutrophils # 4.410^3/ul Lymphocytes # 2.210^3/ul Monocytes # 0.510^3/ul Eosinophils # 0.310^3/ul Basophils # 0.010^3/ul Nucleated Red Blood Cells # 0.010^3/ul Sodium Level 139mmol/L Potassium Level 4.0mmol/L Chloride Level 104mmol/L Carbon Dioxide Level 28mmol/L Anion Gap 11 Blood Urea Nitrogen 14mg/dl Creatinine 0.62mg/dl Glucose Level 86mg/dl Calcium Level 9.0mg/dl Total Bilirubin 0.0mg/dl Direct Bilirubin 0.00mg/dl Indirect Bilirubin 0.0mg/dl Aspartate Amino Transf (AST/SGOT) 26IU/L Alanine Aminotransferase (ALT/SGPT) 28IU/L Alkaline Phosphatase 90IU/L Total Protein 7.0g/dl Albumin 4.1g/dl Globulin 2.90g/dl Albumin/Globulin Ratio 1.41 Serum HCG, Qualitative NEGATIVE Salicylates Level < 1.0mg/dl Acetaminophen Level < 10.0ug/ml Ethyl Alcohol Level < 10.0mg/dl Current Medications Medications (Trade) Dose Ordered Sig/Robbie Route PRN Reason Start Time Stop Time Status Last Admin Dose Admin Trimethoprim/ Sulfamethoxazole (Bactrim (Ds)) 1 tab ONCE ONCE PO 05/11/17 23:30 05/11/17 23:31 DC 05/11/17 23:14 Procedures/MDM MEDICAL MAKING DECISION: The patient is a 31-year-old female, presenting with acute suicidal ideation, acute cystitis, acute amphetamine abuse. She was treated with Bactrim DS for acute cystitis The differential diagnoses considered include but are not limited to drug- induced psychosis, psychosis, decompensated psychiatric illness, anxiety attack , panic attack Departure Diagnosis: Primary Impression: Suicidal ideation Additional Impressions: UTI (urinary tract infection) Amphetamine abuse Anemia Condition: Stable Comments She was evaluated by telepsychiatrist Dr Maria who recommended 5150 hold The patient's blood pressure was elevated (>120/80) but appears stable without evidence of hypertension emergency or urgency. The patient was counseled about the risks of hypertension and urged to pursue outpatient monitoring and therapy within a week with their primary care physician. NOEMI GOODE MD May 11, 2017 22:01
[2017-05-11 22:12] LABS: ADD UMIC YES; UR BILIRUBIN (Dip) NEGATIVE (NEGATIVE); UR BLOOD (Dip) NEGATIVE (NEGATIVE); UR CLARITY CLOUDY (CLEAR); UR GLUCOSE (Dip) NEGATIVE (NEGATIVE); UR KETONES (Dip) NEGATIVE (NEGATIVE); UR LEUKOCYTE ESTERASE (Dip) 3+ (NEGATIVE); UR NITRITE (Dip) NEGATIVE (NEGATIVE); UR TOTAL PROTEIN (Dip) TRACE (NEGATIVE); UR UROBILINOGEN (Dip) 0.2 E.U./dL (0.1-1.0)
[2017-05-11] MEDS ORDERED: BUPR-187 PO (22:18)
[2017-05-11 22:24] LABS: UR COLOR YELLOW (YELLOW)
[2017-05-11 22:25] LABS: UR BACTERIA MODERATE; UR SQUAMOUS EPITHELIAL CELL MANY; UR TRICHOMONAS MANY; URINE RBCS NONE SEEN /HPF (0)
[2017-05-11 22:45] LABS: BARBITURATES Negative (NEGATIVE); BENZODIAZEPINES Negative (NEGATIVE); CANNABINOIDS Negative (NEGATIVE); COCAINE Negative (NEGATIVE); OPIATES Negative (NEGATIVE)
[2017-05-11 22:56] LABS: ADD SCAN DIFF NO
[2017-05-11 23:04] LABS: BASOPHILS % 0.5 % (0.0-2.0); EOSINOPHILS # 0.3 10^3/ul (0.0-0.5); EOSINOPHILS % 4.3 % (0.0-7.0); HEMATOCRIT 34.5 % (37.0-47.0); HEMOGLOBIN 10.5 g/dl (12.0-16.0); LYMPHOCYTES # 2.2 10^3/ul (0.8-2.9); LYMPHOCYTES % 29.2 % (15.0-51.0); MEAN CORPUSCULAR HEMOGLOBIN 23.5 pg (29.0-33.0); MEAN CORPUSCULAR HGB CONC 30.4 g/dl (32.0-37.0); MEAN CORPUSCULAR VOLUME 77.2 fl (82.0-101.0); MONOCYTE # 0.5 10^3/ul (0.3-0.9); MONOCYTES % 6.9 % (0.0-11.0); NEUTROPHIL # 4.4 10^3/ul (1.6-7.5); NEUTROPHILS % 58.2 % (39.0-77.0); PLATELET COUNT 466 10^3/UL (140-415); RED BLOOD COUNT 4.47 10^6/ul (4.20-5.40); RED CELL DISTRIBUTION WIDTH 19.1 % (11.5-14.5); WHITE BLOOD COUNT 7.6 10^3/ul (4.8-10.8)
[2017-05-11 23:20] LABS: ALANINE AMINOTRANSFERASE 28 IU/L (13-69); ALBUMIN 4.1 g/dl (3.3-4.9); ALBUMIN/GLOBULIN RATIO 1.41; ALKALINE PHOSPHATASE 90 IU/L (42-121); ANION GAP 11 (8-16); ASPARTATE AMINO TRANSFERASE 26 IU/L (15-46); BLOOD UREA NITROGEN 14 mg/dl (7-20); CARBON DIOXIDE 28 mmol/L (21-31); CHLORIDE 104 mmol/L (97-110); CREATININE 0.62 mg/dl (0.44-1.00); GLUCOSE 86 mg/dl (70-220); SODIUM 139 mmol/L (135-144)
[2017-05-11 23:23] LABS: ACETAMINOPHEN < 10.0 ug/ml (10.0-30.0); ETHANOL < 10.0 mg/dl; SALICYLATE < 1.0 mg/dl (5.0-30.0)
[2017-05-11] MEDS ORDERED: TRIMETHOPRIM/SULFAMETHOX (DS) TAB PO ONE (23:30)
--- NOTE | 2017-05-12 00:35 | PSY ---
Date/Time of Note Date/Time of Note DATE: 05/12/17 TIME: 00:28 Psychiatric Subjective Eval Consent Pt consented to telemedicine: Yes Subjective Evaluation Patient location: emergency Chief Complaint: suicide thoughts no plan,depression,last meth used at 1500 today Reason for consult: suicidal History of present illness patient is a 31 yo female living with her parents with PPH of depression and methamphetamines abuse well known to the ER and to me , comes at least once a month with similar complaint of feeling depressed or suicidal after using methamphetamine, who came to the ER due to feeling depressed and suicidal with no plan or intent , states that she does not know why she is depressed, does not know why she is suicidal, denies any manic or psychotic symptoms, no HI. Past psychiatric history no medication no therapy no drug rehab Hospitalization: yes Family History denies Medical history Problems Medical Problems: (1) Methamphetamine abuse Status: Acute (2) Methamphetamine abuse Status: Acute (3) Psychosis Status: Acute (4) Substance abuse Status: Acute (5) Suicidal ideation Status: Acute (6) UTI (urinary tract infection) Status: Acute Allergies: Coded Allergies: Penicillins (Unverified Allergy, Mild, 05/11/17) Substance Abuse Substance abuse history: Yes Prior substance abuse treatmen: No Social History Level of education: hs DPA/Conservatorship: No Occupation/Alf: unemployed Psychiatric Objective Eval Review of Systems: Review of Systems: Not Applicable Physical Examination: Physical Examination: Applicable Appetite: Decreased Energy: Decreased Interest: Decreased Mental Status Examination: Appearance: Disheveled Eye Contact: Good Psychomotor Activity: Normal Behavior: Cooperative Speech: Clear AFFECT: Flat Mood: Depressed Though Process: Linear Thought Content: Normal Suicidal: Yes Homicidal: No On 72 hour hold: No Orientation: x2 Cognition: Alert Insight: Intact Judgement: Intact Attention Span: Intact Laboratory Results Laboratory Tests Test 05/11/17 21:50 05/11/17 22:00 05/11/17 22:30 Urine Color YELLOW Urine Clarity CLOUDY Urine pH 6.0 Urine Specific [place] 1.025 Urine Ketones NEGATIVE Urine Nitrite NEGATIVE Urine Bilirubin NEGATIVE Urine Urobilinogen 0.2 E.U./dL Urine Leukocyte Esterase 3+ Urine Microscopic RBC NONE SEEN/HPF Urine Microscopic WBC >50/HPF Urine Squamous Epithelial Cells MANY Urine Bacteria MODERATE Urine Trichomonas MANY Urine Hemoglobin NEGATIVE Urine Glucose NEGATIVE% Urine Total Protein TRACE Urine Opiates Screen Negative Urine Barbiturates Negative Urine Amphetamines Screen POSITIVE Urine Benzodiazepines Screen Negative Urine Cocaine Screen Negative Urine Cannabinoids Negative Bedside Urine pH (LAB) 6.0 Bedside Urine Protein (LAB) 1+ Bedside Urine Glucose (UA) Negative Bedside Urine Ketones (LAB) Trace Bedside Urine Blood Negative Bedside Urine Nitrite (LAB) Negative Bedside Urine Leukocyte Esterase (L 3+ White Blood Count 7.610^3/ul Red Blood Count 4.4710^6/ul Hemoglobin 10.5g/dl Hematocrit 34.5% Mean Corpuscular Volume 77.2fl Mean Corpuscular Hemoglobin 23.5pg Mean Corpuscular Hemoglobin Concent 30.4g/dl Red Cell Distribution Width 19.1% Platelet Count 18359^3/UL Mean Platelet Volume 10.0fl Neutrophils % 58.2% Lymphocytes % 29.2% Monocytes % 6.9% Eosinophils % 4.3% Basophils % 0.5% Nucleated Red Blood Cells % 0.0/100WBC Neutrophils # 4.410^3/ul Lymphocytes # 2.210^3/ul Monocytes # 0.510^3/ul Eosinophils # 0.310^3/ul Basophils # 0.010^3/ul Nucleated Red Blood Cells # 0.010^3/ul Sodium Level 139mmol/L Potassium Level 4.0mmol/L Chloride Level 104mmol/L Carbon Dioxide Level 28mmol/L Anion Gap 11 Blood Urea Nitrogen 14mg/dl Creatinine 0.62mg/dl Glucose Level 86mg/dl Calcium Level 9.0mg/dl Total Bilirubin 0.0mg/dl Direct Bilirubin 0.00mg/dl Indirect Bilirubin 0.0mg/dl Aspartate Amino Transf (AST/SGOT) 26IU/L Alanine Aminotransferase (ALT/SGPT) 28IU/L Alkaline Phosphatase 90IU/L Total Protein 7.0g/dl Albumin 4.1g/dl Globulin 2.90g/dl Albumin/Globulin Ratio 1.41 Serum HCG, Qualitative NEGATIVE Salicylates Level < 1.0mg/dl Acetaminophen Level < 10.0ug/ml Ethyl Alcohol Level < 10.0mg/dl Assessment and Plan Assessment/Diagnosis [place] I: depressive do amphetamine abuse [place] II: deferred [place] III: as per record [place] IV: poor social support [place] V: gaf 25 Recommendation/Plan Medication Management wellbutrin XL 150 mg po qam Follow-up/Disposition Patient needs unvoluntary admission due to danger to self In my opinion, patient currently MEETS criterion for inpatient care and CANNOT be safely treated at a lower level of care today as evidenced by the following risk factors: Current Suicidal Ideation. Previous suicide attempt or severe self-destructive behavior. Intense feelings of hopelessness and/or lack of future orientation. Non-Compliance with Outpatient Treatment. Substance ABUSE in conjunction with another psychiatric disorder. . Significant recent DETERIORATION in function, behavior and thought processes 5150 Recommendation: LIZABETH Richards MD May 12, 2017 00:35
[2017-05-12] MEDS ORDERED: BUPROPION (XL) 150 MG TAB PO ONE (13:30)
[2017-05-12 17:03] VITALS: BP 108/68; PULSE 81; RESP 14
[2017-05-12] MEDS ORDERED: TRIMETHOPRIM/SULFAMETHOX (DS) TAB PO ONE (17:30)
== END 2017-05-12 18:11 ==
LOC: E/R 21:18
DX: F15.10 Other stimulant abuse, uncomplicated (principal); R45.851 Suicidal ideations; N39.0 Urinary tract infection, site not specified; D64.9 Anemia, unspecified; E11.9 Type 2 diabetes mellitus without complications; F17.210 Nicotine dependence, cigarettes, uncomplicated
CPT/HCPCS: 80053; 80306; 80307; 81001; 84703; 85025; 87086; 93005; Z7610; 81003

== ENCOUNTER 2017-05-17 04:08 | Emergency (ER) | payer OTHER ==
[~2017-05-17] VITALS: Ht 170.2 cm; Wt 65.0 kg
[~2017-05-17 04:08] MED LIST changes: +BUPR-187 PO; -CEPH-443 PO
[2017-05-17 04:12] VITALS: Ht 170.2 cm; Wt 65.0 kg
--- NOTE | 2017-05-17 04:21 | ERA ---
ER Documentation Chief Complaint Date/Time DATE: 05/17/17 TIME: 04:21 Chief Complaint suicidal ideation, no plan, no previous attempts HPI This is a 31-year-old female so she is suicidal. She has no plan. She has been here essentially once every few weeks for similar complaints. Patient admits to using methamphetamines tonight. ROS All systems reviewed and are negative except as per history of present illness. Medications Home Meds Reported Medications Bupropion Hcl* (Wellbutrin SR*) Unknown Strength Tablet.sa, PO BID, TAB.SA 05/11/17 Allergies Allergies: Coded Allergies: Penicillins (Unverified Allergy, Mild, 05/11/17) PMhx/Soc History of Surgery: Yes ( x 2) Anesthesia Reaction: No Hx Neurological Disorder: No Hx Respiratory Disorders: No Hx Cardiac Disorders: No Hx Psychiatric Problems: Yes (Schizophrenia, depression) Hx Miscellaneous Medical Probl: No Hx Alcohol Use: Yes (socially) Hx Substance Use: Yes (meth) Hx Tobacco Use: Yes Physical Exam Vitals Vital Signs Date Time Temp Pulse Resp B/P Pulse Ox O2 Delivery O2 Flow Rate FiO2 05/17/17 04:12 98.0 120 18 134/88 99 Physical Exam Const: [] Head: Atraumatic Eyes: Normal Conjunctiva ENT: Normal External Ears, Nose and Mouth. Neck: Full range of motion..~ No meningismus. Resp: Clear to auscultation bilaterally Cardio: Regular rate and rhythm, no murmurs Abd: Soft, non tender, non distended. Normal bowel sounds Skin: No petechiae or rashes Back: No midline or flank tenderness Ext: No cyanosis, or edema Neur: Awake and alert Psych: Normal Mood and Affect Procedures/MDM Patient's behavioral symptoms have stabilized while in the department. Patient is medically cleared and appropriate for psychiatric evaluation and work up. No e/o neurologic, toxic, infectious, or metabolic cause. Departure Diagnosis: Primary Impression: Suicidal ideation Condition: Stable EDUARDO COMBS May 17, 2017 04:21
[2017-05-17 04:38] VITALS: TEMP 98.2
[2017-05-17 04:48] LABS: ADD SCAN DIFF NO
[2017-05-17 04:52] LABS: BASOPHIL # 0.1 10^3/ul (0.0-0.1); BASOPHILS % 1.2 % (0.0-2.0); EOSINOPHILS # 0.3 10^3/ul (0.0-0.5); EOSINOPHILS % 2.4 % (0.0-7.0); HEMATOCRIT 37.7 % (37.0-47.0); HEMOGLOBIN 11.7 g/dl (12.0-16.0); LYMPHOCYTES # 3.3 10^3/ul (0.8-2.9); MEAN CORPUSCULAR HEMOGLOBIN 23.9 pg (29.0-33.0); MEAN CORPUSCULAR VOLUME 77.1 fl (82.0-101.0); MONOCYTE # 0.8 10^3/ul (0.3-0.9); MONOCYTES % 8.1 % (0.0-11.0); NEUTROPHIL # 5.7 10^3/ul (1.6-7.5); NEUTROPHILS % 55.5 % (39.0-77.0); PLATELET COUNT 485 10^3/UL (140-415); RED BLOOD COUNT 4.89 10^6/ul (4.20-5.40); RED CELL DISTRIBUTION WIDTH 20.5 % (11.5-14.5); WHITE BLOOD COUNT 10.3 10^3/ul (4.8-10.8)
[2017-05-17 04:55] LABS: ADD UMIC YES; UR BILIRUBIN (Dip) NEGATIVE (NEGATIVE); UR BLOOD (Dip) NEGATIVE (NEGATIVE); UR CLARITY CLEAR (CLEAR); UR COLOR LT. YELLOW (YELLOW); UR GLUCOSE (Dip) NEGATIVE (NEGATIVE); UR KETONES (Dip) NEGATIVE (NEGATIVE); UR LEUKOCYTE ESTERASE (Dip) TRACE (NEGATIVE); UR NITRITE (Dip) NEGATIVE (NEGATIVE); UR TOTAL PROTEIN (Dip) NEGATIVE (NEGATIVE); UR UROBILINOGEN (Dip) 0.2 E.U./dL (0.1-1.0)
[2017-05-17 05:05] LABS: UR MUCUS FEW /HPF (NONE SEEN); UR SQUAMOUS EPITHELIAL CELL OCCASIONAL /HPF (FEW); URINE RBCS 0-2 /HPF (0)
[2017-05-17 05:13] LABS: BARBITURATES Negative (NEGATIVE); BENZODIAZEPINES Negative (NEGATIVE); CANNABINOIDS Negative (NEGATIVE); COCAINE Negative (NEGATIVE); OPIATES Negative (NEGATIVE)
[2017-05-17 05:26] LABS: ALANINE AMINOTRANSFERASE 40 IU/L (13-69); ALBUMIN/GLOBULIN RATIO 1.51; ALKALINE PHOSPHATASE 107 IU/L (42-121); ANION GAP 16 (8-16); ASPARTATE AMINO TRANSFERASE 30 IU/L (15-46); BILIRUBIN,INDIRECT 0.1 mg/dl (0-1.1); BILIRUBIN,TOTAL 0.1 mg/dl (0.2-1.3); BLOOD UREA NITROGEN 20 mg/dl (7-20); CALCIUM 9.7 mg/dl (8.4-10.2); CARBON DIOXIDE 27 mmol/L (21-31); CHLORIDE 103 mmol/L (97-110); CREATININE 0.85 mg/dl (0.44-1.00); GLUCOSE 95 mg/dl (70-220); POTASSIUM 3.9 mmol/L (3.5-5.1); SODIUM 142 mmol/L (135-144); TOTAL PROTEIN 8.3 g/dl (6.1-8.1)
[2017-05-17 05:30] LABS: ACETAMINOPHEN < 10.0 ug/ml (10.0-30.0); ETHANOL < 10.0 mg/dl; SALICYLATE < 1.0 mg/dl (5.0-30.0)
--- NOTE | 2017-05-17 05:42 | QN ---
Documentation Comment Patient evaluated by telemetry psychiatry. Found to be stable for outpatient management. Patient discharged home. EDUARDO COMBS. May 17, 2017 05:42
[2017-05-17 06:01] VITALS: BP 131/78; PULSE 85; RESP 20
--- NOTE | 2017-05-17 06:14 | PSY ---
Date/Time of Note Date/Time of Note DATE: 05/17/17 TIME: 06:00 Psychiatric Subjective Eval Consent Pt consented to telemedicine: Yes Subjective Evaluation Patient location: emergency Chief Complaint: i just ate some food and i dont feel suicidal anymore Reason for consult: suicidal History of present illness patient is a 31 yo male with PPH of depression and amphetamine abuse who came to the ER due to feeling suicidal , she comes to the ER several times a week for similar complaint , while intoxicated with amphetamine , wants to a place to rest , to eat and sometimes wants psych admission, now she is telling me that she just ate a sandwich and rested and she is ready to be discharged, she was recently discharged from the psych unit , she states that she used meth today, feels depressed but does not want to hurt herself, denies any current manic or psychotic symptoms Past psychiatric history no meds Hospitalization: yes Family History denies Medical history Problems Medical Problems: (1) Amphetamine abuse Status: Acute (2) Anemia Status: Acute (3) Methamphetamine abuse Status: Acute (4) Methamphetamine abuse Status: Acute (5) Psychosis Status: Acute (6) Substance abuse Status: Acute (7) Suicidal ideation Status: Acute (8) Suicidal ideation Status: Acute (9) Suicidal ideation Status: Acute (10) UTI (urinary tract infection) Status: Acute (11) UTI (urinary tract infection) Status: Acute Allergies: Coded Allergies: Penicillins (Unverified Allergy, Mild, 05/11/17) Substance Abuse Substance abuse history: Yes Prior substance abuse treatmen: Yes Social History Marital status: single Level of education: hs DPA/Conservatorship: No Occupation/Care Home: no Psychiatric Objective Eval Review of Systems: Review of Systems: Not Applicable Physical Examination: Physical Examination: Applicable Appetite: Adequate Energy: Adequate Interest: Adequate Mental Status Examination: Appearance: Groomed Eye Contact: Good Psychomotor Activity: Normal Behavior: Cooperative Speech: Clear AFFECT: Appropriate Mood: Depressed Though Process: Linear Thought Content: Normal Suicidal: No Homicidal: No On 72 hour hold: No Cognition: Alert Insight: Intact Judgement: Intact Attention Span: Intact Laboratory Results Laboratory Tests Test 05/17/17 04:20 White Blood Count 10.310^3/ul Red Blood Count 4.8910^6/ul Hemoglobin 11.7g/dl Hematocrit 37.7% Mean Corpuscular Volume 77.1fl Mean Corpuscular Hemoglobin 23.9pg Mean Corpuscular Hemoglobin Concent 31.0g/dl Red Cell Distribution Width 20.5% Platelet Count 93701^3/UL Mean Platelet Volume 10.0fl Neutrophils % 55.5% Lymphocytes % 32.0% Monocytes % 8.1% Eosinophils % 2.4% Basophils % 1.2% Nucleated Red Blood Cells % 0.0/100WBC Neutrophils # 5.710^3/ul Lymphocytes # 3.310^3/ul Monocytes # 0.810^3/ul Eosinophils # 0.310^3/ul Basophils # 0.110^3/ul Nucleated Red Blood Cells # 0.010^3/ul Urine Color LT. YELLOW Urine Clarity CLEAR Urine pH Urine Specific [place] Urine Ketones NEGATIVE Urine Nitrite NEGATIVE Urine Bilirubin NEGATIVE Urine Urobilinogen 0.2 E.U./dL Urine Leukocyte Esterase TRACE Urine Microscopic RBC 0-2/HPF Urine Microscopic WBC 2-5/HPF Urine Squamous Epithelial Cells OCCASIONAL/HPF Urine Mucus FEW/HPF Urine Hemoglobin NEGATIVE Urine Glucose NEGATIVE% Urine Total Protein NEGATIVE Sodium Level 142mmol/L Potassium Level 3.9mmol/L Chloride Level 103mmol/L Carbon Dioxide Level 27mmol/L Anion Gap 16 Blood Urea Nitrogen 20mg/dl Creatinine 0.85mg/dl Glucose Level 95mg/dl Calcium Level 9.7mg/dl Total Bilirubin 0.1mg/dl Direct Bilirubin 0.00mg/dl Indirect Bilirubin 0.1mg/dl Aspartate Amino Transf (AST/SGOT) 30IU/L Alanine Aminotransferase (ALT/SGPT) 40IU/L Alkaline Phosphatase 107IU/L Total Protein 8.3g/dl Albumin 5.0g/dl Globulin 3.30g/dl Albumin/Globulin Ratio 1.51 Salicylates Level < 1.0mg/dl Urine Opiates Screen Negative Acetaminophen Level < 10.0ug/ml Urine Barbiturates Negative Urine Amphetamines Screen POSITIVE Urine Benzodiazepines Screen Negative Urine Cocaine Screen Negative Urine Cannabinoids Negative Ethyl Alcohol Level < 10.0mg/dl Assessment and Plan Assessment/Diagnosis [place] I: mood do nos amphetamine abuse [place] II: deferred [place] III: as per record [place] IV: poor social support [place] V: gap 25 Recommendation/Plan Follow-up/Disposition In my opinion,for this patient, outpatient care is the least restrictive option. Based on available evidence, this condition CAN be safely treated at a lower level of care effective today. Patient is stable without clear and convincing evidence of imminent danger due to mental illness that requires acute inpatient psychiatric care as the least restrictive alternative. please refer patient to outpatient mental health clinic for medication management and pscyhotherapy [id number] Recommendation: LIZABETH Richards MD May 17, 2017 06:10
== END 2017-05-17 06:04 | disposition home or self-care (01) ==
LOC: E/R 04:08
DX: R45.851 Suicidal ideations (principal); Z87.891 Personal history of nicotine dependence
CPT/HCPCS: 36415; 80053; 80306; 80307; 81001; 85025; Z7502; 99283

== ENCOUNTER 2017-06-05 17:45 | Emergency (ER) | payer SELFPAY ==
[~2017-06-05] VITALS: Ht 175.3 cm; Wt 68.5 kg
[2017-06-05 17:52] VITALS: Ht 175.3 cm; Wt 68.5 kg
== END 2017-06-05 19:10 | disposition left against medical advice (07) ==
LOC: E/R 17:45
DX: Z53.21 Procedure and treatment not carried out due to patient leaving prior to being seen by health care provider (principal)

== ENCOUNTER 2018-03-19 13:58 | Emergency (ER) | END 2018-03-19 17:50 | disposition home or self-care (01) ==

== ENCOUNTER 2018-03-26 12:20 | Emergency (ER) | END 2018-03-26 17:15 | disposition home or self-care (01) ==

== ENCOUNTER 2018-04-16 20:41 | Emergency (ER) | END 2018-04-17 16:35 ==

== ENCOUNTER 2018-05-07 15:22 | Emergency (ER) | END 2018-05-07 17:38 | disposition left against medical advice (07) ==

== ENCOUNTER 2018-05-30 14:49 | Emergency (ER) | END 2018-05-31 08:15 ==

== ENCOUNTER 2018-06-09 20:33 | Emergency (ER) | END 2018-06-10 18:19 ==

== ENCOUNTER 2018-06-14 00:19 | Emergency (ER) | END 2018-06-14 10:53 | disposition home or self-care (01) ==

== ENCOUNTER 2018-06-22 18:38 | Emergency (ER) | END 2018-06-22 21:38 | disposition home or self-care (01) ==

== ENCOUNTER 2018-06-25 11:35 | Emergency (ER) | END 2018-06-26 11:36 ==

== ENCOUNTER 2018-07-10 01:28 | Emergency (ER) | END 2018-07-10 08:54 | disposition home or self-care (01) ==

== ENCOUNTER 2018-08-01 15:45 | Emergency (ER) | END 2018-08-01 18:36 | disposition left against medical advice (07) ==

== ENCOUNTER 2018-08-12 05:49 | Emergency (ER) | END 2018-08-12 08:46 | disposition left against medical advice (07) ==

== ENCOUNTER 2018-08-31 22:46 | Emergency (ER) | END 2018-09-01 00:17 | disposition home or self-care (01) ==

== ENCOUNTER 2018-09-04 19:54 | Emergency (ER) | END 2018-09-04 21:27 | disposition home or self-care (01) ==

== ENCOUNTER 2018-09-05 14:54 | Emergency (ER) | END 2018-09-05 16:08 | disposition left against medical advice (07) ==

== ENCOUNTER 2018-09-11 05:48 | Emergency (ER) | END 2018-09-11 10:05 | disposition home or self-care (01) ==

== ENCOUNTER 2018-09-17 13:26 | Emergency (ER) | END 2018-09-17 16:55 | disposition home or self-care (01) ==

== ENCOUNTER 2018-10-07 18:18 | Emergency (ER) | END 2018-10-07 23:03 | disposition home or self-care (01) ==

== ENCOUNTER 2018-10-08 13:55 | Emergency (ER) | END 2018-10-08 20:22 | disposition home or self-care (01) ==

== ENCOUNTER 2018-10-09 11:30 | Emergency (ER) | END 2018-10-09 15:09 | disposition home or self-care (01) ==

== ENCOUNTER 2018-10-13 13:52 | Emergency (ER) | END 2018-10-13 21:26 ==

== ENCOUNTER 2018-11-28 07:05 | Emergency (ER) | payer OTHER ==
[~2018-11-28] VITALS: Ht 175.3 cm; Wt 65.7 kg
[~2018-11-28 07:05] MED LIST changes: -BUPR-187 PO; +OLAN10TA7 PO
[2018-11-28 07:07] VITALS: Ht 175.3 cm; Wt 65.7 kg
--- NOTE | 2018-11-28 07:29 | ERD ---
ER Documentation Chief Complaint Chief Complaint SUICIDAL IDEATION. HAS NO PLAN. OFF ZYPREXA x 2 mos HPI This is a 33-year-old female with a past medical history of schizophrenia, homelessness with frequent visits to the emergency department for psychiatric issues and hunger who is presenting with a desire to eat. The patient reported to triage that she had suicidal ideations. She admitted to me that she is not suicidal, but she is just hungry. She does not want to hurt herself. She does not want to hurt others. She denies any auditory or visual hallucinations. She does note that she is not been on Zyprexa for a few months as she has not had a prescription. The patient denies feeling sick recently. The patient denies fever or chills. The patient has had no headache or vision changes. The patient does not endorse neck or back pain. The patient denies lightheadedness or dizziness. The patient has had no chest pain or trouble breathing. The patient denies nausea or vomiting. The patient denies abdominal pain. The patient denies changes to bowel movements or urination. The patient has had no focal deficits. The patient has had no weakness or numbness or tingling to the face or extremities. ROS All systems reviewed and are negative except as per history of present illness. Medications Home Meds Active Scripts Olanzapine* (Zyprexa*) 10 Mg Tablet, 10 MG PO QHS, #10 TAB Prov:EVER RICHARD MD 10/09/18 Allergies Allergies: Coded Allergies: Penicillins (Unverified Allergy, Mild, 10/13/18) PMhx/Soc History of Surgery: No Anesthesia Reaction: No Hx Neurological Disorder: No Hx Respiratory Disorders: No Hx Cardiac Disorders: No Hx Psychiatric Problems: Yes (DEPRESSION, paranoid schizophrenia) Hx Miscellaneous Medical Probl: No Hx Alcohol Use: Yes (occasionally) Hx Substance Use: Yes (methamphetamine, cocaine, marijuana) Hx Tobacco Use: No FmHx Family History: No diabetes, No coronary disease Physical Exam Vitals Vital Signs Date Temp Pulse Resp B/P (MAP) Pulse Ox O2 O2 Flow FiO2 Time Delivery Rate 11/28/18 98.2 90 18 140/87 99 07:07 (104) Physical Exam Const: No apparent distress, well-developed, well-nourished Head: Normocephalic, Atraumatic Eyes: Normal Conjunctiva. Extraocular movements intact. Pupils equal, round and reactive to light ENT: Normal External Ears, Nose and Mouth. Neck: Full range of motion. No meningismus. Resp: Clear to auscultation bilaterally, No wheezes, rales or rhonchi Cardio: Regular rate and rhythm. No murmurs, rubs or gallops Abd: Soft, non tender, non distended. Normal bowel sounds Skin: No petechiae or rashes Back: No midline tenderness. No CVA tenderness Ext: No cyanosis, or edema Neur: Awake and alert, oriented 4. Cranial nerves intact. No facial droop. Normal strength, sensation and coordination. Psych: No suicidal or homicidal ideations. No auditory or visual hallucinations. Procedures/MDM MDM The patient presents for hunger. She initially endorse suicidal ideations in the triage area in order to be assessed in the back. She admits that she is not suicidal. She denies any suicidal ideations or homicidal ideations. She denies any auditory or visual hallucinations at this time. While the patient does have a history of schizophrenia, I have low suspicion for acute psychosis. I do have high suspicion for secondary gain, as the patient readily admits that she is hungry. I have very low suspicion that she is a danger to herself or others. I do not feel that she requires further psychiatric assessment. The patient also presents for medication refill. The patient takes Zyprexa 5 mg twice daily. She was given a dose in the emergency department. The patient was offered fdc resources. TREATMENT/DISPOSITION The patient was provided food in the emergency department. The patient endorsed satisfaction. Upon reevaluation of the patient, symptoms have improved. No emergent diagnoses were identified. At this time, I feel that the patient stable for discharge. The patient was instructed to follow-up with a primary care physician in 1-3 days. The patient will be given strict precautions with which to return to the emergency department. Prescriptions: Zyprexa Disclaimer: Inadvertent spelling and grammatical errors are likely due to EHR/dictation software use and do not reflect on the overall quality of patient care. Note that the electronic time recorded on this note does not necessarily reflect the actual time of the patient encounter. Departure Diagnosis: Primary Impression: Hunger Encounter type: sequela Qualified Codes: T73.0XXS - Starvation, sequela Additional Impressions: Encounter for medication refill Homelessness History of schizophrenia Condition: Stable ALFONSO IGLESIAS MD Nov 28, 2018 07:29
[2018-11-28] MEDS ORDERED: OLANZAPINE 5 MG TAB PO ONE (07:30)
[2018-11-28] MEDS ORDERED: OLAN5TAB5 PO (07:31)
[2018-11-28 08:28] VITALS: BP 126/96; PULSE 91; RESP 18
== END 2018-11-28 08:30 | disposition home or self-care (01) ==
LOC: E/R 07:05
DX: T73.0XXS Starvation, sequela (principal); Z59.0 Homelessness; Z76.0 Encounter for issue of repeat prescription; Z86.59 Personal history of other mental and behavioral disorders
CPT/HCPCS: Z7502; Z7610; 99283

== ENCOUNTER 2018-11-28 20:29 | Emergency (ER) | payer OTHER ==
[~2018-11-28] VITALS: Ht 157.5 cm; Wt 66.3 kg
[~2018-11-28 20:29] MED LIST changes: +OLAN5TAB5 PO
[2018-11-28 21:07] VITALS: Ht 157.5 cm; Wt 66.3 kg
--- NOTE | 2018-11-29 04:18 | PSY ---
Date/Time of Note Date/Time of Note DATE: 11/29/18 TIME: 04:03 Psychiatric Subjective Eval Consent Pt consented to telemedicine: Yes Subjective Evaluation Patient location: emergency Chief Complaint: suicidal but states she has no plan Medical history Problems Medical Problems: (1) Amphetamine abuse Status: Acute (2) Amphetamine abuse Status: Acute (3) Amphetamine abuse Status: Acute (4) Amphetamine abuse Status: Acute (5) Amphetamine abuse, continuous Status: Acute (6) Anemia Status: Acute (7) Anemia Status: Acute (8) Cystitis Status: Acute (9) Cystitis Status: Acute (10) Depression Status: Acute (11) Depression Status: Acute (12) Drug use Status: Acute (13) Encounter for medication refill Status: Acute (14) Gravely disabled Status: Acute (15) History of methamphetamine abuse Status: Acute (16) History of psychosis Status: Acute (17) History of schizophrenia Status: Acute (18) Homelessness Status: Acute (19) Homelessness Status: Acute (20) Homelessness Status: Acute (21) Hunger Status: Acute (22) Hungry Status: Acute (23) Medication refill Status: Acute (24) Medication refill Status: Acute (25) Methamphetamine abuse Status: Acute (26) Methamphetamine abuse Status: Acute (27) Methamphetamine abuse Status: Acute (28) Methamphetamine abuse Status: Acute (29) Methamphetamine abuse Status: Acute (30) Methamphetamine abuse Status: Acute (31) Normocytic anemia Status: Acute (32) Patient left after triage Status: Acute (33) Patient left without being seen Status: Acute (34) Psychosis Status: Acute (35) Schizophrenia Status: Acute (36) Schizophrenia Status: Acute (37) Schizophrenia Status: Acute (38) Substance abuse Status: Acute (39) Substance induced mood disorder Status: Acute (40) Suicidal ideation Status: Acute (41) Suicidal ideation Status: Acute (42) Suicidal ideation Status: Acute (43) Suicidal ideation Status: Acute (44) Suicidal ideation Status: Acute (45) Suicidal ideation Status: Acute (46) Suicidal ideation Status: Acute (47) Suicidal ideation Status: Acute (48) Suicidal ideation Status: Acute (49) Suicidal ideation Status: Acute (50) Suicidal ideation Status: Acute (51) Suicidal ideation Status: Acute (52) Suicide threat or attempt Status: Acute (53) Urinary tract infection Status: Acute (54) UTI (urinary tract infection) Status: Acute (55) UTI (urinary tract infection) Status: Acute (56) UTI (urinary tract infection) Status: Acute (57) UTI (urinary tract infection) Status: Acute Allergies: Coded Allergies: Penicillins (Unverified Allergy, Mild, 11/28/18) Psychiatric Objective Eval Mental Status Examination: Laboratory Results Laboratory Tests Test 11/29/18 03:09 11/29/18 03:14 White Blood Count 8.7 10^3/ul Red Blood Count 4.11 10^6/ul Hemoglobin 10.7 g/dl Hematocrit 34.6 % Mean Corpuscular Volume 84.2 fl Mean Corpuscular Hemoglobin 26.0 pg Mean Corpuscular Hemoglobin Concent 30.9 g/dl Red Cell Distribution Width 16.4 % Platelet Count 328 10^3/UL Mean Platelet Volume 10.2 fl Immature Granulocytes % 0.200 % Neutrophils % 66.6 % Lymphocytes % 23.0 % Monocytes % 7.2 % Eosinophils % 2.4 % Basophils % 0.6 % Nucleated Red Blood Cells % 0.0 /100WBC Immature Granulocytes # 0.020 10^3/ul Neutrophils # 5.8 10^3/ul Lymphocytes # 2.0 10^3/ul Monocytes # 0.6 10^3/ul Eosinophils # 0.2 10^3/ul Basophils # 0.1 10^3/ul Nucleated Red Blood Cells # 0.0 10^3/ul Urine Color YELLOW Urine Clarity SLIGHTLY CLOUDY Urine pH 6.0 Urine Specific [place] 1.026 Urine Ketones NEGATIVE mg/dL Urine Nitrite NEGATIVE mg/dL Urine Bilirubin NEGATIVE mg/dL Urine Urobilinogen NEGATIVE mg/dL Urine Leukocyte Esterase 3+ Michael/ul Urine Microscopic RBC 3 /HPF Urine Microscopic WBC 10 /HPF Urine Squamous Epithelial Cells FEW /HPF Urine Hemoglobin NEGATIVE mg/dL Urine Glucose NEGATIVE mg/dL Urine Total Protein NEGATIVE mg/dl Sodium Level 142 mmol/L Potassium Level 3.6 mmol/L Chloride Level 108 mmol/L Carbon Dioxide Level 28 mmol/L Anion Gap 6 Blood Urea Nitrogen 33 mg/dl Creatinine 0.74 mg/dl Est Glomerular Filtrat Rate mL/min > 60 mL/min Glucose Level 95 mg/dl Calcium Level 9.1 mg/dl Total Bilirubin 0.0 mg/dl Direct Bilirubin 0.00 mg/dl Indirect Bilirubin 0.0 mg/dl Aspartate Amino Transf (AST/SGOT) 39 IU/L Alanine Aminotransferase (ALT/SGPT) 29 IU/L Alkaline Phosphatase 88 IU/L Total Protein 7.2 g/dl Albumin 3.9 g/dl Globulin 3.30 g/dl Albumin/Globulin Ratio 1.18 Salicylates Level < 1.0 mg/dl Urine Opiates Screen NEGATIVE Acetaminophen Level < 10.0 ug/ml Urine Barbiturates NEGATIVE Urine Amphetamines Screen POSITIVE Urine Benzodiazepines Screen NEGATIVE Urine Cocaine Screen NEGATIVE Urine Cannabinoids NEGATIVE Ethyl Alcohol Level < 10.0 mg/dl POC Beta HCG, Qualitative NEGATIVE Assessment and Plan Recommendation/Plan Discharge Disposition: Community Legal Status: Voluntary Assessment Additional comments: IDENTIFYING INFORMATION: 33 year old Female patient who is currently located at the hospital and for whom psychiatric consultation was requested. SOURCES OF INFORMATION: The patient who appears to be somewhat reliable and the medical records; the nursing staff. CHIEF COMPLAINT: "I need a place to sleep at". HISTORY OF PRESENT ILLNESS: The patient was interviewed via telemedicine in the presence of and under the supervision of nursing staff of the hospital. The consent to conducting this interview via telemedicine was obtained by the nursing staff at the hospital. BRADY Mejia reports that the patient presented with SI in the context of meth use and homelessness. The patient reports having no place to stay at and having thoughts hurting herself, then denies that currently explaining that she just is homeless, and lied because she wanted to get housing resources and get some help for the night. The patient denies having SI, AH, VH, delusions, depressed mood, anhedonia, low appetite, insomnia. The patient denies using alcohol heavily or regularly. The patient reports using meth daily. Last use was today. The patient denies using any other substances. In terms of past psychiatric history, the patient reports having a history of past psychiatric hospitalizations. The patient reports having a history of past suicide attempts. Past medication trials: zyprexa. The patient denies ever having a history of AH, delusions, persistent or serious depression or anhedonia, manic or hypomanic episodes. PAST MEDICAL HISTORY: none. CURRENT MEDICATIONS: none. ALLERGIES TO MEDICATIONS: PCN. LABORATORY TESTS: CBC with hemoglobin of 10.7, hematocrit 34.6, MCH 26, UDS positive for amphetamines, no alcohol detected, CMP with blood urea nitrogen of 33, SOCIAL HISTORY: single, no children, stays with her boyfriend sometimes, not employed, not on disability, graduated from ; no access to firearms. REVIEW OF SYSTEMS: Constitutional (e.g., fever, weight loss): negative; Eyes, Ears, Nose, Mouth, Throat: negative; Cardiovascular: negative; Respiratory: negative; Gastrointestinal: negative; Genitourinary: negative; Musculoskeletal: negative; Integumentary (skin and/or breast): negative; Neurological: negative; Psychiatric: as per HPI; Endocrine: negative; Hematologic/Lymphatic: negative; Allergic/Immunologic: negative. MENTAL STATUS EXAMINATION: General Appearance and Behavior: Calm, cooperative with the interview, pleasant with the current interviewer, makes fair eye contact, fairly groomed, no abnormal movements noted Speech: Regular rate, regular rhythm, normal latency, normal volume, normal amount. Flow of thought: sequential, logical, goal-directed Content of thought: no auditory hallucinations, no visual hallucinations, no delusions, negative for suicidal ideation; no homicidal ideation, Mood: "fine" Affect: euthymic, reactive Attention: normal based on the interview Insight: fair, Judgment: poor, Memory: normal based on the interview, Sensorium: alert and oriented to person, place and date. ASSESSMENT: The patient's presentation and history are consistent with the diagnosis of Malingering, history of unspecified psychotic disorder, stimulant use disorder. The patient presents claiming suicidal ideation in the context of homelessness, substance use to obtain senior care. the patient openly admitted to wanting a place to stay wishes what precipitated her emergency room presentation. the patient is clearly future oriented, asking for resources, asking to talk to the social services specialist. the patient openly admitted that she was lying about being suicidal to obtain resources. The patient is not in a major depressive episode at this time. The patient is in fact euthymic on exam, has a bright affect, and has no symptoms or signs of depression whatsoever. No evidence of psychosis, dc, hypomania on exam. PLAN: - Medication management: Would start Zyprexa 5 mg by mouth twice a day. Please dispense a prescription sufficient for 10 days. please administer the 1st dose of Zyprexa well the patient is at the emergency room. - Labs: No other laboratory tests are needed at this time. - Psychotherapy: Provided supportive psychotherapy and psychoeducation. - Disposition: The patient is appropriate for the outpatient level of care at this time from a psychiatric perspective. The patient is not an imminent danger to self or others. The patient is motivated for outpatient treatment. The patient agrees to be compliant with outpatient follow-up appointments and pharmacotherapy as indicated. Would recommend that the patient follows up with a psychiatrist. Resources for outpatient follow-up will be provided by the hospital staff. The patient's risk for completed suicide is high in comparison to the general population. Risk factors include race, substance use disorder, history of psychosis, history of past suicide attempts. Protective factors include gender, age, absence of bipolar disorder, major dep ressive disorder, anxiety disorder, personality disorder, no access to firearms, no major chronic medical problems. The patient's risk for completed suicide cannot be modified more effectively with inpatient admission at this time. The patient is not an imminent danger to self or others at this time and does not meet the legal criteria for involuntary admission. Risks, benefits, alternatives were discussed and the patient provided informed consent to proceed with the above plan. the patient is clearly future oriented,reports that talking to the social services specialist so that she can discuss housing resources would be "perfect". I asked to call the patient's family or her boyfriend but she declined to allow me to do so, reporting that there is no reason for me to do so. I called the emergency room physician who is taking care of the patient to discuss about the above plan but the emergency room physician is not available at this time. I left my phone number with the hospital staff requesting a callback so that the emergency room physician can reach me when they become available. EKIKO DIAZ MD Nov 29, 2018 04:13
--- NOTE | 2018-11-29 05:17 | ERD ---
ER Documentation Chief Complaint Chief Complaint suicidal but states she has no plan HPI This is a 33-year-old female well-known to us as a history comes in with complaints of suicidal ideation. She states she has no plan. Denies any fevers chills nausea vomiting. Denies auditory or visual hallucination. Denies any other current complaints. ROS All systems reviewed and are negative except as per history of present illness. Medications Home Meds Active Scripts Olanzapine* (Zyprexa*) 5 Mg Tablet, 5 MG PO BID, #30 TAB Prov:ALFONSO IGLESIAS MD 11/28/18 Discontinued Scripts Olanzapine* (Zyprexa*) 10 Mg Tablet, 10 MG PO QHS, #10 TAB Prov:EVER RICHARD MD 10/09/18 Allergies Allergies: Coded Allergies: Penicillins (Unverified Allergy, Mild, 11/28/18) PMhx/Soc History of Surgery: No Anesthesia Reaction: No Hx Neurological Disorder: No Hx Respiratory Disorders: No Hx Cardiac Disorders: No Hx Psychiatric Problems: Yes (DEPRESSION, paranoid schizophrenia) Hx Miscellaneous Medical Probl: No Hx Alcohol Use: Yes (occasionally) Hx Substance Use: Yes (methamphetamine, cocaine, marijuana) Hx Tobacco Use: No Smoking Status: Current every day smoker Physical Exam Vitals Vital Signs Date Temp Pulse Resp B/P (MAP) Pulse Ox O2 O2 Flow FiO2 Time Delivery Rate 11/28/18 97.9 89 20 120/74 100 21:07 (89) Physical Exam Const: No acute distress Head: Atraumatic Eyes: Normal Conjunctiva ENT: Normal External Ears, Nose and Mouth. Neck: Full range of motion. No meningismus. Resp: Clear to auscultation bilaterally Cardio: Regular rate and rhythm, no murmurs Abd: Soft, non tender, non distended. Normal bowel sounds Skin: No petechiae or rashes Back: No midline or flank tenderness Ext: No cyanosis, or edema Neur: Awake and alert Psych: Normal Mood and Affect Result Diagram: 11/29/18 0309 11/29/18 030 Results 24 hrs Laboratory Tests Test 11/29/18 03:09 11/29/18 03:14 White Blood Count 8.7 10^3/ul Red Blood Count 4.11 10^6/ul Hemoglobin 10.7 g/dl Hematocrit 34.6 % Mean Corpuscular Volume 84.2 fl Mean Corpuscular Hemoglobin 26.0 pg Mean Corpuscular Hemoglobin Concent 30.9 g/dl Red Cell Distribution Width 16.4 % Platelet Count 328 10^3/UL Mean Platelet Volume 10.2 fl Immature Granulocytes % 0.200 % Neutrophils % 66.6 % Lymphocytes % 23.0 % Monocytes % 7.2 % Eosinophils % 2.4 % Basophils % 0.6 % Nucleated Red Blood Cells % 0.0 /100WBC Immature Granulocytes # 0.020 10^3/ul Neutrophils # 5.8 10^3/ul Lymphocytes # 2.0 10^3/ul Monocytes # 0.6 10^3/ul Eosinophils # 0.2 10^3/ul Basophils # 0.1 10^3/ul Nucleated Red Blood Cells # 0.0 10^3/ul Urine Color YELLOW Urine Clarity SLIGHTLY CLOUDY Urine pH 6.0 Urine Specific [place] 1.026 Urine Ketones NEGATIVE mg/dL Urine Nitrite NEGATIVE mg/dL Urine Bilirubin NEGATIVE mg/dL Urine Urobilinogen NEGATIVE mg/dL Urine Leukocyte Esterase 3+ Michael/ul Urine Microscopic RBC 3 /HPF Urine Microscopic WBC 10 /HPF Urine Squamous Epithelial Cells FEW /HPF Urine Hemoglobin NEGATIVE mg/dL Urine Glucose NEGATIVE mg/dL Urine Total Protein NEGATIVE mg/dl Sodium Level 142 mmol/L Potassium Level 3.6 mmol/L Chloride Level 108 mmol/L Carbon Dioxide Level 28 mmol/L Anion Gap 6 Blood Urea Nitrogen 33 mg/dl Creatinine 0.74 mg/dl Est Glomerular Filtrat Rate mL/min > 60 mL/min Glucose Level 95 mg/dl Calcium Level 9.1 mg/dl Total Bilirubin 0.0 mg/dl Direct Bilirubin 0.00 mg/dl Indirect Bilirubin 0.0 mg/dl Aspartate Amino Transf (AST/SGOT) 39 IU/L Alanine Aminotransferase (ALT/SGPT) 29 IU/L Alkaline Phosphatase 88 IU/L Total Protein 7.2 g/dl Albumin 3.9 g/dl Globulin 3.30 g/dl Albumin/Globulin Ratio 1.18 Salicylates Level < 1.0 mg/dl Urine Opiates Screen NEGATIVE Acetaminophen Level < 10.0 ug/ml Urine Barbiturates NEGATIVE Urine Amphetamines Screen POSITIVE Urine Benzodiazepines Screen NEGATIVE Urine Cocaine Screen NEGATIVE Urine Cannabinoids NEGATIVE Ethyl Alcohol Level < 10.0 mg/dl POC Beta HCG, Qualitative NEGATIVE Procedures/MDM Patient's behavioral symptoms have stabilized while in the department. Patient is medically cleared and appropriate for psychiatric evaluation and work up. No e/o neurologic, toxic, infectious, or metabolic cause. Found to be stable for outpatient management by telemetry psychiatry which I agree with. Patient will be discharged with resources. Departure Diagnosis: Primary Impression: Depression Depression Type: unspecified Qualified Codes: F32.9 - Major depressive disorder, single episode, unspecified Condition: Stable EDUARDO COMBS Nov 29, 2018 05:17
[2018-11-29 06:04] VITALS: BP 114/61; PULSE 74; RESP 16
== END 2018-11-29 06:41 | disposition home or self-care (01) ==
LOC: E/R 20:29
DX: F32.9 Major depressive disorder, single episode, unspecified (principal); R40.2252 Coma scale, best verbal response, oriented, at arrival to emergency department; R40.2362 Coma scale, best motor response, obeys commands, at arrival to emergency department; R40.2142 Coma scale, eyes open, spontaneous, at arrival to emergency department; F17.210 Nicotine dependence, cigarettes, uncomplicated
CPT/HCPCS: 36415; 80053; 80306; 80307; 81001; 81025; 85025; Z7502; 99285

== ENCOUNTER 2018-11-29 17:16 | Emergency (ER) | payer OTHER ==
[~2018-11-29] VITALS: Ht 177.8 cm; Wt 65.5 kg
[2018-11-29 17:31] VITALS: Ht 177.8 cm; Wt 65.5 kg
--- NOTE | 2018-11-29 20:26 | ERD ---
ER Documentation Chief Complaint Chief Complaint Suicidal ideation, no plan HPI Is a 33-year-old female who was seen here yesterday and the day before for suicidal ideation. She was evaluated by telemetry psychiatrist. The patient says she was just discharged from [facility] today and came here. She says she is feeling suicidal but will not elaborate any further. She tells me they have a plan. She says she is homeless. She has no physical complaints ROS All systems reviewed and are negative except as per history of present illness. Medications Home Meds Active Scripts Olanzapine* (Zyprexa*) 5 Mg Tablet, 5 MG PO BID, #30 TAB Prov:ALFONSO IGLESIAS MD 11/28/18 Discontinued Scripts Olanzapine* (Zyprexa*) 10 Mg Tablet, 10 MG PO QHS, #10 TAB Prov:EVER RICHARD MD 10/09/18 Allergies Allergies: Coded Allergies: Penicillins (Unverified Allergy, Mild, 11/29/18) PMhx/Soc History of Surgery: No Anesthesia Reaction: No Hx Neurological Disorder: No Hx Respiratory Disorders: No Hx Cardiac Disorders: No Hx Psychiatric Problems: Yes (DEPRESSION, paranoid schizophrenia) Hx Miscellaneous Medical Probl: No Hx Alcohol Use: Yes (occasionally) Hx Substance Use: Yes (methamphetamine, cocaine, marijuana) Hx Tobacco Use: No FmHx Family History: No coronary disease Physical Exam Vitals Vital Signs Date Temp Pulse Resp B/P (MAP) Pulse Ox O2 O2 Flow FiO2 Time Delivery Rate 11/29/18 97.4 95 18 123/77 99 17:31 (92) Physical Exam Const: Well-developed, well-nourished Head: Atraumatic, normocephalic Eyes: Normal Conjunctiva, PERRLA, EOMI, normal sclera, no nystagmus ENT: Normal External Ears, Nose and Mouth, moist mucus membranes. Neck: Full range of motion. No meningismus, no lymphadenopathy. Resp: Clear to auscultation bilaterally, no wheezing, rhonchi, rales Cardio: Regular rate and rhythm, no murmurs, S1 S2 present Abd: Soft, non tender x 4, non distended. Normal bowel sounds, no guarding or rebound, no pulsitile abdominal masses or bruits Skin: No petechiae or rashes, no ecchymosis , no maculopapular rash Back: No midline or flank tenderness Ext: No cyanosis, or edema, FROM x 4, normal inspection, neurovascularly intact x 4 Neur: Awake and alert, STR 5/5 x 4, sensation intact x 4, no focal f indings, cerebellum intact Psych: Normal Mood and Affect Results 24 hrs Laboratory Tests Test 11/29/18 21:59 Ethyl Alcohol Level < 10.0 mg/dl Procedures/[facility] Will have telemetry psychiatrist to evaluate the patient. I do not feel that she needs any labs or workup as she is have these done the past 2 days. The patient admits to the psychiatrist that she lied about being suicidal. She also tells me that she lie and that the main reason she is here because she wants food and she is homeless and does not want to be in the cold Departure Diagnosis: Primary Impression: Suicidal ideation Condition: CHANG Quigley DO Nov 29, 2018 20:26
--- NOTE | 2018-11-29 21:44 | PSY ---
Date/Time of Note Date/Time of Note DATE: 11/29/18 TIME: 21:43 Psychiatric Subjective Eval Consent Pt consented to telemedicine: Yes Subjective Evaluation Patient location: emergency Chief Complaint: Suicidal ideation, no plan Medical history Problems Medical Problems: (1) Amphetamine abuse Status: Acute (2) Amphetamine abuse Status: Acute (3) Amphetamine abuse Status: Acute (4) Amphetamine abuse Status: Acute (5) Amphetamine abuse, continuous Status: Acute (6) Anemia Status: Acute (7) Anemia Status: Acute (8) Cystitis Status: Acute (9) Cystitis Status: Acute (10) Depression Status: Acute (11) Depression Status: Acute (12) Drug use Status: Acute (13) Encounter for medication refill Status: Acute (14) Gravely disabled Status: Acute (15) History of methamphetamine abuse Status: Acute (16) History of psychosis Status: Acute (17) History of schizophrenia Status: Acute (18) Homelessness Status: Acute (19) Homelessness Status: Acute (20) Homelessness Status: Acute (21) Hunger Status: Acute (22) Hungry Status: Acute (23) Medication refill Status: Acute (24) Medication refill Status: Acute (25) Methamphetamine abuse Status: Acute (26) Methamphetamine abuse Status: Acute (27) Methamphetamine abuse Status: Acute (28) Methamphetamine abuse Status: Acute (29) Methamphetamine abuse Status: Acute (30) Methamphetamine abuse Status: Acute (31) Normocytic anemia Status: Acute (32) Patient left after triage Status: Acute (33) Patient left without being seen Status: Acute (34) Psychosis Status: Acute (35) Schizophrenia Status: Acute (36) Schizophrenia Status: Acute (37) Schizophrenia Status: Acute (38) Substance abuse Status: Acute (39) Substance induced mood disorder Status: Acute (40) Suicidal ideation Status: Acute (41) Suicidal ideation Status: Acute (42) Suicidal ideation Status: Acute (43) Suicidal ideation Status: Acute (44) Suicidal ideation Status: Acute (45) Suicidal ideation Status: Acute (46) Suicidal ideation Status: Acute (47) Suicidal ideation Status: Acute (48) Suicidal ideation Status: Acute (49) Suicidal ideation Status: Acute (50) Suicidal ideation Status: Acute (51) Suicidal ideation Status: Acute (52) Suicide threat or attempt Status: Acute (53) Urinary tract infection Status: Acute (54) UTI (urinary tract infection) Status: Acute (55) UTI (urinary tract infection) Status: Acute (56) UTI (urinary tract infection) Status: Acute (57) UTI (urinary tract infection) Status: Acute Allergies: Coded Allergies: Penicillins (Unverified Allergy, Mild, 11/29/18) Assessment and Plan Recommendation/Plan Discharge Disposition: Community (Other) Legal Status: Voluntary Assessment Additional comments: IDENTIFYING INFORMATION: 33 year old Female patient who is currently located at the hospital and for whom psychiatric consultation was requested. SOURCES OF INFORMATION: The patient who appears to be somewhat reliable and the medical records; the nursing staff. CHIEF COMPLAINT: "I need a place to stay at". HISTORY OF PRESENT ILLNESS: The patient was interviewed via telemedicine in the presence of and under the supervision of nursing staff of the hospital. The consent to conducting this interview via telemedicine was obtained by the nursing staff at the hospital. BRADY Christina reports that the patient presented reporting that she needs a place to stay and also endorsed having SI. The patient denies having SI now, reports that she is hungry and needs a place to stay at. she admits that she lied about having suicidal thoughts because she wanted a place to stay at. The patient denies having AH, delusions, SI, HI, depressed mood, hopelessness, helplessness, low appetite, insomnia. The patient denies using alcohol heavily or regularly. The patient reports using meth daily. Last use was earlier today. The patient denies using any other substances. In terms of past psychiatric history, the patient reports having a history of past psychiatric hospitalizations. The patient reports having a history of past suicide attempts. Past medication trials: zyprexa. the patient is very well-known to the current provider and has been evaluated by a the current provider multiple times in this setting.. PAST MEDICAL HISTORY: none. CURRENT MEDICATIONS: zyprexa 5 mg po bid. ALLERGIES TO MEDICATIONS: PCN. LABORATORY TESTS: pending. SOCIAL HISTORY: single, no children, stays with her boyfriend sometimes, not employed, not on disability, graduated from ; no access to firearms. REVIEW OF SYSTEMS: Constitutional (e.g., fever, weight loss): negative; Eyes, Ears, Nose, Mouth, Throat: negative; Cardiovascular: negative; Respiratory: negative; Gastrointestinal: negative; Genitourinary: negative; Musculoskeletal: negative; Integumentary (skin and/or breast): negative; Neurological: negative; Psychiatric: as per HPI; Endocrine: negative; Hematologic/Lymphatic: negative; Allergic/Immunologic: negative. MENTAL STATUS EXAMINATION: General Appearance and Behavior: Calm, cooperative with the interview, pleasant with the current interviewer, makes fair eye contact, fairly groomed, no abnormal movements noted Speech: Regular rate, regular rhythm, normal latency, normal volume, Somewhat decreased amount. Flow of thought: sequential, logical, goal-directed Content of thought: no auditory hallucinations, no visual hallucinations, no delusions, negative for suicidal ideation; no homicidal ideation, Mood: "good" Affect: euthymic, reactive Attention: normal based on the interview Insight: poor Judgment: poor Memory: normal based on the interview Sensorium: alert and oriented to person, place and date ASSESSMENT: The patient's presentation and history are consistent with the diagnosis of Malingering, history of unspecified psychotic disorder, stimulant use disorder. The patient presented again to the emergency room today claiming suicidal ideation in the context of homelessness, substance use to obtain penitentiary. the patient openly admitted to wanting a place to stay precipitating her emergency room presentation. the patient was evaluated for the exact same reasons by the current provider yesterday. The patient is clearly future oriented, asking for resources, asking to talk to the social media assistant. the patient openly admitted that she was lying about being suicidal to obtain resources. The patient is not in a major depressive episode at this time. The patient is in fact euthymic on exam, has a bright affect, and has no symptoms or signs of depression whatsoever. No evidence of psychosis, dc, hypomania on exam. PLAN: - Medication management: Would continue Zyprexa 5 mg by mouth twice a day. - Labs: plese check alcohol level, UDS. - Psychotherapy: Provided supportive psychotherapy and psychoeducation. - Disposition: The patient is appropriate for the outpatient level of care at this time from a psychiatric perspective so long as the alcohol level is below the legal limit. if the patient's alcohol level is above the legal limit, then please reconsult psychiatry. The patient is not an imminent danger to self or others. The patient is motivated for outpatient treatment. The patient agrees to be compliant with outpatient follow-up appointments and pharmacotherapy as indicated. Would recommend that the patient follows up with a psychiatrist. Resources for outpatient follow-up will be provided by the hospital staff. The patient's risk for completed suicide is high in comparison to the general population. Risk factors include race, substance use disorder, history of psychosis, history of past suicide attempts. Protective factors include gender, age, absence of bipolar disorder, major depressive disorder, anxiety disorder, personality disorder, no access to firearms, no major chronic medical problems. The patient's risk for completed suicide cannot be modified more effectively with inpatient admission at this time. The patient is not an imminent danger to self or others at this time and does not meet the legal criteria for involuntary admission. Risks, benefits, alternatives were discussed and the patient provided informed consent to proceed with the above plan. the patient is clearly future oriented again, reports that she would like something to eat and she needs a place to stay at. I asked to call the patient's family or her boyfriend again today but she declined to allow me to do so, reporting that there is no reason for me to do so. discussed with emergency room physician, Dr. Ordonez. KEIKO DIAZ MD Nov 29, 2018 21:44
[2018-11-30 00:28] VITALS: BP 102/52; PULSE 78; RESP 18
== END 2018-11-30 02:03 | disposition home or self-care (01) ==
LOC: E/R 17:16
DX: R45.851 Suicidal ideations (principal); R40.2252 Coma scale, best verbal response, oriented, at arrival to emergency department; R40.2362 Coma scale, best motor response, obeys commands, at arrival to emergency department; R40.2142 Coma scale, eyes open, spontaneous, at arrival to emergency department
CPT/HCPCS: 80307; Z7502; 99283

== ENCOUNTER 2018-12-21 01:20 | Emergency (ER) | payer OTHER ==
[~2018-12-21] VITALS: Ht 175.3 cm; Wt 65.3 kg
[~2018-12-21 01:20] MED LIST changes: -OLAN10TA7 PO
[2018-12-21 01:31] VITALS: Ht 175.3 cm; Wt 65.3 kg
--- NOTE | 2018-12-21 02:45 | ERD ---
ER Documentation Chief Complaint Chief Complaint SI with plan of using scissors after smoking meth 4 hrs ago HPI 33-year-old female with a history of meth abuse presenting with complaints of suicidal ideation with plan of using scissors to cut herself. She did smoke meth 4 hours ago. Nurse noted that the patient had food with her, and when inquired, patient states that she was at [facility] prior to this and was discharged. Patient states that she did not speak to a psychiatrist or get evaluated at all. I asked the patient if she is truly suicidal or if she was making the statements to get a bed. She does admit that she was stating that she was suicidal so she can get a bed in the ER to sleep in. ROS All systems reviewed and are negative except as per history of present illness. Medications Home Meds Active Scripts Olanzapine* (Zyprexa*) 5 Mg Tablet, 5 MG PO BID, #30 TAB Prov:ALFONSO IGLESIAS MD 11/28/18 Allergies Allergies: Coded Allergies: Penicillins (Unverified Allergy, Mild, 11/29/18) PMhx/Soc History of Surgery: No Anesthesia Reaction: No Hx Neurological Disorder: No Hx Respiratory Disorders: No Hx Cardiac Disorders: No Hx Psychiatric Problems: Yes (DEPRESSION, paranoid schizophrenia) Hx Miscellaneous Medical Probl: No Hx Alcohol Use: Yes (occasionally) Hx Substance Use: Yes (methamphetamine, cocaine, marijuana) Hx Tobacco Use: Yes Smoking Status: Current some day smoker FmHx Family History: No diabetes Physical Exam Vitals Vital Signs Date Temp Pulse Resp B/P (MAP) Pulse Ox O2 O2 Flow FiO2 Time Delivery Rate 12/21/18 97.5 96 20 128/60 98 01:31 (82) Physical Exam INITIAL VITAL SIGNS: Reviewed by me GENERAL: Well appearing, non toxic, speaking in full sentences. HEENT: Atraumatic, Moist mucous membranes NECK: Supple. RESPIRATORY: No respiratory distress. EXTREMITIES: No clubbing or cyanosis. No edema SKIN: Warm, dry. NEUROLOGIC: A&Ox4. No facial asymmetry. Normal speech. Psych: M/S: Alert and oriented Mood/Affect: Normal Speech: Normal Insight: Normal Hallucinations: None SI or HI: None Results 24 hrs Laboratory Tests Test 12/21/18 02:20 POC Beta HCG, Qualitative NEGATIVE Procedures/MDM Patient is well-known to the ER and frequently comes here for suicidal ideations. However she has come here in the past and has stated she was suicidal to get a bed, but then admits that she is not suicidal. I do not think the patient is a danger to herself or others at this time. She does not require psychiatric evaluation or involuntary hold. I feel her symptoms are chronic and stable. Patient actually does admit that she only said that so she can have a b ed to sleep in. Patient is stable for discharge from my standpoint. Departure Diagnosis: Primary Impression: Methamphetamine abuse Additional Impression: Manipulative behavior Condition: Stable MEGGAN FRAZIER MD Dec 21, 2018 02:45
[2018-12-21 03:04] VITALS: BP 123/81; PULSE 95; RESP 21
[2018-12-31] MEDS ORDERED: CEPH-443 PO (12:07)
== END 2018-12-21 03:05 | disposition home or self-care (01) ==
LOC: E/R 01:20
DX: F15.10 Other stimulant abuse, uncomplicated (principal); R40.2142 Coma scale, eyes open, spontaneous, at arrival to emergency department; R40.2362 Coma scale, best motor response, obeys commands, at arrival to emergency department; R40.2252 Coma scale, best verbal response, oriented, at arrival to emergency department; F60.89 Other specific personality disorders; F17.210 Nicotine dependence, cigarettes, uncomplicated
CPT/HCPCS: 80307; 81025; 99282

== ENCOUNTER 2019-01-30 07:08 | Emergency (ER) | payer OTHER ==
[~2019-01-30] VITALS: Ht 175.3 cm; Wt 67.2 kg
[~2019-01-30 07:08] MED LIST changes: +CEPH-443 PO
[2019-01-30 07:11] VITALS: BP 148/100; PULSE 112; RESP 16; Ht 175.3 cm; Wt 67.2 kg
--- NOTE | 2019-01-30 07:37 | ERD ---
ER Documentation Chief Complaint Chief Complaint SI NO PLANS. RECENT METH USE HPI 33-year-old female presents to the emergency department complaining of suicidal ideation. Based on evaluation of multiple previous similar complaint presentations as well as multiple psychiatric evaluations in our emergency department, patient has had a history of methamphetamine abuse with what is described as schizophrenia associated with malingering. Today she presents the emergency department stating that she needs dry closed. She states that after being released from the psychiatric hospital 2 days ago, she is been noncompliant with her medication and continues to use methamphetamine. She denies current suicidal thoughts or an active plan. She denies any significant auditory or visual hallucinations and has no plan for suicide at this time. She does have a plan for self-care stating that she is going to stay with family. Patient has no acute medical complaints at this time. ROS All systems reviewed and are negative except as per history of present illness. Medications Home Meds Active Scripts Cephalexin* (Keflex*) 500 Mg Capsule, 500 MG PO QID for 5 Days, CAP Prov:OLESYA PRESTON MD 12/31/18 Olanzapine* (Zyprexa*) 5 Mg Tablet, 5 MG PO BID, #30 TAB Prov:ALFONSO IGLESIAS MD 11/28/18 Allergies Allergies: Coded Allergies: Penicillins (Unverified Allergy, Mild, 12/31/18) PMhx/Soc History of Surgery: No Anesthesia Reaction: No Hx Neurological Disorder: No Hx Respiratory Disorders: No Hx Cardiac Disorders: No Hx Psychiatric Problems: Yes (DEPRESSION, paranoid schizophrenia, DRUG ABUSE) Hx Miscellaneous Medical Probl: No Hx Alcohol Use: Yes (occasionally) Hx Substance Use: Yes (methamphetamine, cocaine, marijuana) Hx Tobacco Use: Yes Physical Exam Vitals Vital Signs Date Temp Pulse Resp B/P (MAP) Pulse Ox O2 O2 Flow FiO2 Time Delivery Rate 01/30/19 97.1 112 16 148/100 99 07:11 (116) Physical Exam GENERAL: The patient is well developed and appropriate for usual state of health in no apparent distress HEENT: Pupils equal, round, and reactive to light. EOMI. There is no scleral icterus. NECK: C-spine is soft and supple, there is no meningismus. There is no cervical lymphadenopathy. LUNGS: Clear to auscultation bilaterally. There are no rales, wheezes or rhonchi. HEART: Regular rate and rhythm, no murmurs, clicks, rubs or gallops. ABDOMEN: Soft, non-tender, non-distended. There are bowel sounds in all four quadrants. No rebound or guarding. EXTREMITIES: There is no peripheral cyanosis or edema. No focal swelling or erythema. NEURO: The patient moves all four extremities with 5/5 strength. Cranial nerves II - XII are intact. Normal gait. Alert and oriented SKIN: There is no apparent rash or petechiae. HEME/LYMPHATIC: There is no evidence of excessive bruising or lymphedema. PSYCHIATRIC: The patient does not appear anxious or depressed. Patient is able to expose a care plan for herself. She has a linear thought process. She denies suicidal or homicidal ideation. Departure Diagnosis: Primary Impression: Methamphetamine abuse Additional Impression: Schizophrenia Condition: Stable Patient Instructions: Understanding Methamphetamine Abuse and Addiction, Schizophrenia, General Additional Instructions: Don't do drugs. Please f/u with the mental health specialists this week. AISLINN ARRIAZA Jan 30, 2019 07:37
== END 2019-01-30 08:39 | disposition home or self-care (01) ==
LOC: E/R 07:08
DX: F15.10 Other stimulant abuse, uncomplicated (principal); F20.9 Schizophrenia, unspecified; Z87.891 Personal history of nicotine dependence
CPT/HCPCS: 99282

== ENCOUNTER 2019-02-27 20:36 | Emergency (ER) | payer SELFPAY ==
[~2019-02-27] VITALS: Ht 175.3 cm; Wt 64.0 kg
[2019-02-27 21:27] VITALS: BP 151/91; PULSE 104; RESP 18; Ht 175.3 cm; Wt 64.0 kg
== END 2019-02-28 02:50 | disposition left against medical advice (07) ==
LOC: E/R 20:36
DX: Z53.21 Procedure and treatment not carried out due to patient leaving prior to being seen by health care provider (principal)

== ENCOUNTER 2019-02-28 06:56 | Emergency (ER) | payer SELFPAY ==
[~2019-02-28] VITALS: Ht 175.3 cm; Wt 64.0 kg
[2019-02-28 06:57] VITALS: BP 142/93; PULSE 112; RESP 16; Ht 175.3 cm; Wt 64.0 kg
== END 2019-02-28 11:43 | disposition left against medical advice (07) ==
LOC: E/R 06:56
DX: Z53.21 Procedure and treatment not carried out due to patient leaving prior to being seen by health care provider (principal)

== ENCOUNTER 2019-03-08 08:13 | Emergency (ER) | payer OTHER ==
[~2019-03-08] VITALS: Ht 175.3 cm; Wt 63.6 kg
[2019-03-08 08:22] VITALS: BP 115/67; PULSE 78; RESP 16; Ht 175.3 cm; Wt 63.6 kg
--- NOTE | 2019-03-08 10:04 | ERD ---
ER Documentation Chief Complaint Chief Complaint pt is bib self, at triage now denies SI, "I'm hungry need help" HPI 33 year old female, with multiple ED visits in the past, who presents with documented suicidal ideations in triage. However now the patient states that she is hungry, and would like clothes. She denies any suicidal ideations ROS All systems reviewed and are negative except as per history of present illness. Medications Home Meds Active Scripts Cephalexin* (Keflex*) 500 Mg Capsule, 500 MG PO QID for 5 Days, CAP Prov:OLESYA PRESTON MD 12/31/18 Olanzapine* (Zyprexa*) 5 Mg Tablet, 5 MG PO BID, #30 TAB Prov:ALFONSO IGLESIAS MD 11/28/18 Allergies Allergies: Coded Allergies: Penicillins (Unverified Allergy, Mild, 12/31/18) PMhx/Soc History of Surgery: No Anesthesia Reaction: No Hx Neurological Disorder: No Hx Respiratory Disorders: No Hx Cardiac Disorders: No Hx Psychiatric Problems: Yes (DEPRESSION, paranoid schizophrenia, DRUG ABUSE) Hx Miscellaneous Medical Probl: No Hx Alcohol Use: Yes (occasionally) Hx Substance Use: Yes (methamphetamine, cocaine, marijuana) Hx Tobacco Use: Yes Smoking Status: Current every day smoker Physical Exam Vitals Vital Signs Date Temp Pulse Resp B/P (MAP) Pulse Ox O2 O2 Flow FiO2 Time Delivery Rate 03/08/19 97.7 78 16 115/67 100 08:22 (83) Physical Exam Const: Afebrile, nontoxic Head: Atraumatic Eyes: Normal conjunctiva ENT: Normal external ears, nose and mouth. Neck: Resp: Normal respiratory effort Cardio: Abd: Skin: Back: Ext: Neur: Awake and alert Psych: Normal mood and affect Procedures/MDM 33-year-old female presents for some stated SI. Patient's SI was situational, as once she was brought into the room, and given food, she no longer endorsed suicidal ideations. She was provided food, and our nurse look for clothing to provider, however she eloped prior to being given this, at discharge she was ambulatory and in no distress Departure Diagnosis: Primary Impression: Suicidal ideation Condition: Stable OLESYA MILLER MD Mar 08, 2019 10:04
== END 2019-03-08 10:00 | disposition left against medical advice (07) ==
LOC: E/R 08:13
DX: R45.851 Suicidal ideations (principal); F17.210 Nicotine dependence, cigarettes, uncomplicated
CPT/HCPCS: 99282

== ENCOUNTER 2019-03-08 15:50 | Emergency (ER) | payer SELFPAY ==
[~2019-03-08] VITALS: Ht 175.3 cm; Wt 63.6 kg
[2019-03-08 15:57] VITALS: BP 144/87; PULSE 75; RESP 16; Ht 175.3 cm; Wt 63.6 kg
== END 2019-03-08 17:16 | disposition left against medical advice (07) ==
LOC: E/R 15:50
DX: Z53.21 Procedure and treatment not carried out due to patient leaving prior to being seen by health care provider (principal)

== ENCOUNTER 2019-03-12 13:04 | Emergency (ER) | payer OTHER ==
[~2019-03-12] VITALS: Ht 170.2 cm; Wt 66.7 kg
[2019-03-12 13:07] VITALS: BP 136/78; PULSE 99; RESP 18; Ht 170.2 cm; Wt 66.7 kg
--- NOTE | 2019-03-12 13:29 | ERD ---
ER Documentation Chief Complaint Chief Complaint depression, denies SI or HI wants to talk to blasting worker HPI Patient is a 33-year-old female with a history of depression who presents with depression. She denies suicidal or homicidal ideation. She wants to talk to a psychiatric social worker. She is well-known to myself and to the rest of the staff. Upon review of the old medical record she has multiple visits to the ER for similar. Review of the emergency department information exchange system shows visits to multiple different emergency departments. ROS All systems reviewed and are negative except as per history of present illness. Medications Home Meds Discontinued Scripts Cephalexin* (Keflex*) 500 Mg Capsule, 500 MG PO QID for 5 Days, CAP Prov:OLESYA PRESTON MD 12/31/18 Olanzapine* (Zyprexa*) 5 Mg Tablet, 5 MG PO BID, #30 TAB Prov:ALFONSO IGLESIAS MD 11/28/18 Allergies Allergies: Coded Allergies: Penicillins (Unverified Allergy, Mild, 03/12/19) PMhx/Soc History of Surgery: No Anesthesia Reaction: No Hx Neurological Disorder: No Hx Respiratory Disorders: No Hx Cardiac Disorders: No Hx Psychiatric Problems: Yes (DEPRESSION, paranoid schizophrenia, DRUG ABUSE) Hx Miscellaneous Medical Probl: No Hx Alcohol Use: Yes (occasionally) Hx Substance Use: Yes (methamphetamine, cocaine, marijuana) Hx Tobacco Use: Yes Smoking Status: Current every day smoker FmHx Family History: No diabetes Physical Exam Vitals Vital Signs Date Temp Pulse Resp B/P (MAP) Pulse Ox O2 O2 Flow FiO2 Time Delivery Rate 03/12/19 97.7 99 18 136/78 99 13:07 (97) Physical Exam Const: No acute distress Head: Atraumatic Eyes: Normal Conjunctiva ENT: Normal External Ears, Nose and Mouth. Neck: Full range of motion. No meningismus. Resp: Clear to auscultation bilaterally Cardio: Regular rate and rhythm, no murmurs Abd: Soft, non tender, non distended. Normal bowel sounds Skin: No petechiae or rashes Back: No midline or flank tenderness Ext: No cyanosis, or edema Neur: Awake and alert Psych: Depressed affect but denies suicidal or homicidal ideation Procedures/MDM Patient is a 33-year-old female who presents with depression. The patient will be discharged. She does not want to stay any longer and she denies suicidal or homicidal ideation. I do not believe that she requires a 5150 hold at this time. Departure Diagnosis: Primary Impression: Depression Depression Type: unspecified Qualified Codes: F32.9 - Major depressive disorder, single episode, unspecified Condition: Fair Patient Instructions: Depression Referrals: [facility] H.CCourtney (PCP) Additional Instructions: Call your primary care doctor TOMORROW for an appointment during the next 1-2 days.See the doctor sooner or return here if your condition worsens before your appointment time. JAIME HERNANDEZ MD Mar 12, 2019 13:29
== END 2019-03-12 14:33 | disposition home or self-care (01) ==
LOC: E/R 13:04
DX: F32.9 Major depressive disorder, single episode, unspecified (principal); F17.210 Nicotine dependence, cigarettes, uncomplicated
CPT/HCPCS: 81003; Z7502; 99282

== ENCOUNTER 2019-03-20 08:10 | Emergency (ER) | payer SELFPAY ==
[~2019-03-20] VITALS: Wt 63.5 kg
[2019-03-20 08:14] VITALS: BP 150/76; PULSE 90; RESP 18
[2019-03-20] MEDS ORDERED: OLAN10TA7 PO (21:28)
== END 2019-03-20 09:15 | disposition left against medical advice (07) ==
LOC: E/R 08:10
DX: Z53.21 Procedure and treatment not carried out due to patient leaving prior to being seen by health care provider (principal)

== ENCOUNTER 2019-03-20 20:45 | Emergency (ER) | payer OTHER ==
[~2019-03-20] VITALS: Ht 175.3 cm; Wt 66.9 kg
[2019-03-20 20:49] VITALS: Ht 175.3 cm; Wt 66.9 kg
[2019-03-20] MEDS ORDERED: OLAN10TA7 PO (21:28)
[2019-03-20] MEDS ORDERED: OLANZAPINE 5 MG TAB PO ONE (21:30)
[2019-03-20 21:50] VITALS: BP 142/100; PULSE 102; RESP 23
--- NOTE | 2019-03-20 23:09 | ERD ---
ER Documentation Chief Complaint Chief Complaint pt reports suicidal and hungry HPI This is a 25-year-old woman with a history of depression requesting 1 dose of olanzapine and a prescription for olanzapine to help with her symptoms. At triage she had stated she had been thinking about running into traffic but during my HPI states she feels much better in the emergency department and thinks her symptoms have mostly resolved and would be completely treated with a dose of olanzapine. She denies fevers or chills, no trauma, no chest pain or shortness of breath ROS All systems reviewed and are negative except as per history of present illness. Medications Home Meds Active Scripts Olanzapine* (Zyprexa*) 10 Mg Tablet, 10 MG PO DAILY, #30 TAB Prov:OLESYA PRESTON MD 03/20/19 Allergies Allergies: Coded Allergies: Penicillins (Unverified Allergy, Mild, 03/12/19) PMhx/Soc Psychiatric illness Medical and Surgical Hx: pt denies Surgical Hx History of Surgery: No Anesthesia Reaction: No Hx Neurological Disorder: No Hx Respiratory Disorders: No Hx Cardiac Disorders: No Hx Psychiatric Problems: Yes (DEPRESSION, paranoid schizophrenia, DRUG ABUSE) Hx Miscellaneous Medical Probl: No Hx Alcohol Use: Yes (occasionally) Hx Substance Use: Yes (methamphetamine, cocaine, marijuana) Hx Tobacco Use: Yes Smoking Status: Never smoker Physical Exam Vitals Vital Signs Date Temp Pulse Resp B/P (MAP) Pulse Ox O2 O2 Flow FiO2 Time Delivery Rate 03/20/19 102 23 142/100 100 Room Air 21:50 (114) 03/20/19 97.3 122 24 170/108 100 20:49 (128) Physical Exam Const: No acute distress, afebrile Head: Atraumatic Eyes: Normal Conjunctiva ENT: Normal External Ears, Nose and Mouth. Neck: Full range of motion. No meningismus. Resp: Clear to auscultation bilaterally Cardio: Regular rate and rhythm, no murmurs Abd: Soft, non tender, non distended. Normal bowel sounds Skin: No petechiae or rashes Back: No midline or flank tenderness Ext: No cyanosis, or edema Neur: Awake and alert x3, no focal deficits or facial asymmetry, pupils equal round reactive to light Psych: Normal Mood and Affect. Patient was cool, calm, collected without agitation or abnormal behavior. Result Diagram: 03/20/19213203/20/192131 Results 24 hrs Laboratory Tests Test 03/20/19 21:32 03/20/19 21:33 Sodium Level 144 mmol/L Potassium Level 3.5 mmol/L Chloride Level 106 mmol/L Carbon Dioxide Level 28 mmol/L Anion Gap 10 Blood Urea Nitrogen 32 mg/dl Creatinine 0.78 mg/dl Est Glomerular Filtrat Rate mL/min > 60 mL/min Glucose Level 100 mg/dl Calcium Level 9.8 mg/dl Total Bilirubin 0.1 mg/dl Direct Bilirubin 0.00 mg/dl Indirect Bilirubin 0.1 mg/dl Aspartate Amino Transf (AST/SGOT) 30 IU/L Alanine Aminotransferase (ALT/SGPT) 26 IU/L Alkaline Phosphatase 90 IU/L Total Protein 7.9 g/dl Albumin 4.3 g/dl Globulin 3.60 g/dl Albumin/Globulin Ratio 1.19 Salicylates Level < 1.0 mg/dl Acetaminophen Level < 10.0 ug/ml Ethyl Alcohol Level < 10.0 mg/dl White Blood Count 9.3 10^3/ul Red Blood Count 4.49 10^6/ul Hemoglobin 11.0 g/dl Hematocrit 35.5 % Mean Corpuscular Volume 79.1 fl Mean Corpuscular Hemoglobin 24.5 pg Mean Corpuscular Hemoglobin Concent 31.0 g/dl Red Cell Distribution Width 15.8 % Platelet Count 416 10^3/UL Mean Platelet Volume 9.6 fl Immature Granulocytes % 0.500 % Neutrophils % 54.3 % Lymphocytes % 34.4 % Monocytes % 8.2 % Eosinophils % 1.6 % Basophils % 1.0 % Nucleated Red Blood Cells % 0.0 /100WBC Immature Granulocytes # 0.050 10^3/ul Neutrophils # 5.1 10^3/ul Lymphocytes # 3.2 10^3/ul Monocytes # 0.8 10^3/ul Eosinophils # 0.2 10^3/ul Basophils # 0.1 10^3/ul Nucleated Red Blood Cells # 0.0 10^3/ul Current Medications Medications Dose Sig/Robbie Start Time Status Last (Trade) Ordered Route PRN Stop Time Admin Dose Reason Admin Olanzapine 10 mg ONCE ONCE 03/20/19 DC 03/20/19 (Zyprexa) PO 21:30 21:35 03/20/19 21:31 Procedures/MDM I administered olanzapine 10 mg p.o. x1. I agreed to prescribe her olanzapine daily and recommend that she follow-up with her psychiatrist and psychologist for continued outpatient management. I also invited her back to the ER if her symptoms return. CBC and electrolytes were normal, liver function tests were normal, ethanol, aspirin, Tylenol levels negative Patient feels much better at this time, and vital signs are normal, symptoms have improved. I did give strict instructions to return to the ED if symptoms continue or worsen, patient will otherwise follow-up with primary care physician. Patient understood instructions and agreed to plan. Disclaimer: Inadvertent spelling and grammatical errors are likely due to EHR/dictation software use and do not reflect on the overall quality of patient care. Also, please note that the electronic time recorded on this note does not necessarily reflect the actual time of the patient encounter. Departure Diagnosis: Primary Impression: Depression Depression Type: unspecified Qualified Codes: F32.9 - Major depressive disorder, single episode, unspecified Additional Impression: Schizophrenia Schizophrenia type: unspecified Qualified Codes: F20.9 - Schizophrenia, unspecified Ruled Out: Suicidal ideation Condition: Good Patient Instructions: Depression OLESYA PRESTON MD Mar 20, 2019 23:09
== END 2019-03-20 21:50 | disposition home or self-care (01) ==
LOC: E/R 20:45
DX: F32.9 Major depressive disorder, single episode, unspecified (principal); F20.9 Schizophrenia, unspecified
CPT/HCPCS: 80053; 80307; 85025; Z7502; Z7610; 99283

== ENCOUNTER 2019-03-21 12:43 | Emergency (ER) | payer OTHER ==
[~2019-03-21] VITALS: Ht 170.2 cm; Wt 60.0 kg
[~2019-03-21 12:43] MED LIST changes: -CEPH-443 PO; +OLAN10TA7 PO; -OLAN5TAB5 PO
[2019-03-21 13:29] VITALS: BP 142/85; PULSE 88; RESP 20; Ht 170.2 cm; Wt 60.0 kg
--- NOTE | 2019-03-21 13:35 | ERD ---
ER Documentation Chief Complaint Chief Complaint Pt. states she is here for food. Denies HI/SI HPI 33-year-old female well-known to this emergency department who presents to the emergency room initially stating that she was suicidal but denies this and states that the only reason she is here in checking it is that she wants food and drink. Patient states that she is hungry and would like a sandwich and some juice. She denies any suicidal ideation. She denies any homicidal ideation. She states that she only said that to get back sooner. Patient denies any headache chest pain or shortness of breath. No nausea or vomiting. She has no other complaints. ROS All systems reviewed and are negative except as per history of present illness. Medications Home Meds Active Scripts Olanzapine* (Zyprexa*) 10 Mg Tablet, 10 MG PO DAILY, #30 TAB Prov:OLESYA PRESTON MD 03/20/19 Allergies Allergies: Coded Allergies: Penicillins (Unverified Allergy, Mild, 03/12/19) PMhx/Soc History of Surgery: No Anesthesia Reaction: No Hx Neurological Disorder: No Hx Respiratory Disorders: No Hx Cardiac Disorders: No Hx Psychiatric Problems: Yes (DEPRESSION, paranoid schizophrenia, DRUG ABUSE) Hx Miscellaneous Medical Probl: No Hx Alcohol Use: Yes (occasionally) Hx Substance Use: Yes (methamphetamine, cocaine, marijuana) Hx Tobacco Use: Yes FmHx Family History: No diabetes Physical Exam Vitals Vital Signs Date Temp Pulse Resp B/P (MAP) Pulse Ox O2 O2 Flow FiO2 Time Delivery Rate 03/21/19 97.9 88 20 142/85 99 13:29 (104) Physical Exam General: Disheveled, no distress Head: Normocephalic, atraumatic. Eyes: EOM intact ENT: Moist mucous membranes Neck: Full ROM Respiratory: No respiratory distress Cardiovascular: Well perfused distally Abdominal: Nondistended : Deferred MSK: No edema, no unilateral swelling, 5/5 strength Neurologic: Alert and oriented, moving all extremities, normal speech, steady gait Skin: No rash Psych: Normal mood, no SI or HI Procedures/MDM The patient has received a medical screening examination. She states that the only reason she is in the emergency room is that she is hungry and wants food and drink. She is also asking for new underwear. She states that she does not want social service manager resources. Patient denies suicidal and homicidal ideation. She is not a danger to herself or other. The patient has received an appropriate medical screening examination he does not exhibit any signs or symptoms concerning for emergent medical condition. Patient was given food, drink, clothing The patient does not have an identifiable emergent medical condition that warrants inpatient hospitalization at this time. The patient is deemed safe for discharge with outpatient follow-up. We discussed follow up with the patient's primary care doctor within 24 to 48 hours as needed. We also discussed return to the emergency room for worsening symptoms or worsening condition. Outpatient referral: None required Discharge Medications: None required Departure Diagnosis: Primary Impression: Malingering Additional Impressions: Hunger Encounter type: initial encounter Qualified Codes: T73.0XXA - Starvation, initial encounter Encounter for medical screening examination Condition: Good Patient Instructions: Medical Screening Exam, Nonurgent Referrals: [facility] YOU HAVE RECEIVED A MEDICAL SCREENING EXAM AND THE RESULTS INDICATE THAT YOU DO NOT HAVE A CONDITION THAT REQUIRES URGENT TREATMENT IN THE EMERGENCY DEPARTMENT. FURTHER EVALUATION AND TREATMENT OF YOUR CONDITION CAN WAIT UNTIL YOU ARE SEEN IN YOUR DOCTORS OFFICE WITHIN THE NEXT 1-2 DAYS. IT IS YOUR RESPONSIBILITY TO MAKE AN APPOINTMENT FOR FOLOW-UP CARE. IF YOU HAVE A PRIMARY DOCTOR --you should call your primary doctor and schedule an appointment IF YOU DO NOT HAVE A PRIMARY DOCTOR YOU CAN CALL OUR PHYSICIAN REFERRAL HOTLINE AT IF YOU CAN NOT AFFORD TO SEE A PHYSICIAN YOU CAN CHOSE FROM THE FOLLOWING [facility] CLINICS [facility] [address] [facility]. [facility] [address] [facility] [facility] [address] [facility] [facility] [address] [facility]. [facility] [address] [facility]. [facility]. [address] [facility] YOU HAVE RECEIVED A MEDICAL SCREENING EXAM AND THE RESULTS INDICATE THAT YOU DO NOT HAVE A CONDITION THAT REQUIRES URGENT TREATMENT IN THE EMERGENCY DEPARTMENT. FURTHER EVALUATION AND TREATMENT OF YOUR CONDITION CAN WAIT UNTIL YOU ARE SEEN IN YOUR DOCTORS OFFICE WITHIN THE NEXT 1-2 DAYS. IT IS YOUR RESPONSIBILITY TO MAKE AN APPOINTMENT FOR FOLOW-UP CARE. IF YOU HAVE A PRIMARY DOCTOR --you should call your primary doctor and schedule and appointment IF YOU DO NOT HAVE A PRIMARY DOCTOR YOU CAN CALL OUR PHYSICIAN REFERRAL HOTLINE AT . IF YOU CAN NOT AFFORD TO SEE A PHYSICIAN YOU CAN CHOSE FROM THE FOLLOWING [facility] INSTITUTIONS: [facility] [address] [place] [address] [facility] [address] [place] [address] [facility] + [facility] [address] [place] [address] Additional Instructions: Call your primary care doctor TOMORROW for an appointment during the next 1 WEEK.Tell the accredited legal secretary that you were referred from this facility.See the doctor sooner or return here if your condition worsens before your appointment time. EVER RICHARD MD Mar 21, 2019 13:35
== END 2019-03-21 14:03 | disposition home or self-care (01) ==
LOC: E/R 12:43
DX: T73.0XXA Starvation, initial encounter (principal); Z76.5 Malingerer [conscious simulation]; Z87.891 Personal history of nicotine dependence
CPT/HCPCS: 99282

== ENCOUNTER 2019-03-26 02:22 | Emergency (ER) | payer OTHER ==
[~2019-03-26] VITALS: Ht 175.3 cm; Wt 68.1 kg
[2019-03-26 02:23] VITALS: Ht 175.3 cm; Wt 68.1 kg
--- NOTE | 2019-03-26 03:40 | ERD ---
ER Documentation Chief Complaint Chief Complaint SI, denies plan at this time HPI 33-year-old female well-known to the ER presenting with complaints of being "suicidal". She denies any plan at this time. When I further asked the patient about the reason why she was here, she states that she just wanted food and a place to stay. She is denying any suicidal ideations or plan at this time. No other symptoms. ROS All systems reviewed and are negative except as per history of present illness. Medications Home Meds Active Scripts Olanzapine* (Zyprexa*) 10 Mg Tablet, 10 MG PO DAILY, #30 TAB Prov:OLESYA PRESTON MD 03/20/19 Allergies Allergies: Coded Allergies: Penicillins (Unverified Allergy, Mild, 03/12/19) PMhx/Soc History of Surgery: No Anesthesia Reaction: No Hx Neurological Disorder: No Hx Respiratory Disorders: No Hx Cardiac Disorders: No Hx Psychiatric Problems: Yes (DEPRESSION, paranoid schizophrenia, DRUG ABUSE) Hx Miscellaneous Medical Probl: No Hx Alcohol Use: Yes (occasionally) Hx Substance Use: Yes (methamphetamine, cocaine, marijuana) Hx Tobacco Use: Yes FmHx Family History: No diabetes Physical Exam Vitals Vital Signs Date Temp Pulse Resp B/P (MAP) Pulse Ox O2 O2 Flow FiO2 Time Delivery Rate 03/26/19 97.0 96 19 135/68 100 02:23 (90) Physical Exam INITIAL VITAL SIGNS: Reviewed by me GENERAL: Well appearing, non toxic, speaking in full sentences. HEENT: Atraumatic, Moist mucous membranes NECK: Supple. RESPIRATORY: No respiratory distress. EXTREMITIES: No clubbing or cyanosis. No edema SKIN: Warm, dry. NEUROLOGIC: A&Ox4. No facial asymmetry. Normal speech. PSYCH: Normal mood. Flat affect. No SI or HI. No hallucinations Results 24 hrs Laboratory Tests Test 03/26/19 02:44 Bedside Urine pH (LAB) 7.0 Bedside Urine Protein (LAB) Negative Bedside Urine Glucose (UA) Negative Bedside Urine Ketones (LAB) Negative Bedside Urine Blood Negative Bedside Urine Nitrite (LAB) Negative Bedside Urine Leukocyte Esterase (L 3+ POC Beta HCG, Qualitative NEGATIVE Procedures/MDM Patient is presenting with no actual suicidal ideations. She is only here to get a place to sleep and get food. Patient was fed. She states that she is ready to go home. I do not believe she is a danger to herself or others. I feel the patient stable for discharge with continued outpatient follow-up with mental health. Outpatient homeless resources were offered but the patient declined. Departure Diagnosis: Primary Impression: Homelessness Additional Impression: Hungry Encounter type: initial encounter Qualified Codes: T73.0XXA - Starvation, initial encounter Condition: Stable Patient Instructions: Recognizing Suicide Warning Signs in Yourself MEGGAN FRAZIER MD Mar 26, 2019 03:40
[2019-03-26 05:00] VITALS: BP 124/78; PULSE 82; RESP 18
== END 2019-03-26 05:15 | disposition home or self-care (01) ==
LOC: E/R 02:22
DX: T73.0XXA Starvation, initial encounter (principal); R40.2142 Coma scale, eyes open, spontaneous, at arrival to emergency department; R40.2362 Coma scale, best motor response, obeys commands, at arrival to emergency department; R40.2252 Coma scale, best verbal response, oriented, at arrival to emergency department; Z59.0 Homelessness; Z87.891 Personal history of nicotine dependence
CPT/HCPCS: 81003; 81025; Z7502; 99282

== ENCOUNTER 2019-03-26 12:25 | Emergency (ER) | payer OTHER ==
[~2019-03-26] VITALS: Ht 175.3 cm; Wt 68.7 kg
[2019-03-26 12:34] VITALS: BP 135/87; PULSE 90; RESP 18; Ht 175.3 cm; Wt 68.7 kg
--- NOTE | 2019-03-26 13:02 | EN ---
Date/Time of Note Date/Time of Note DATE: 03/26/19 TIME: 13:01 ER Progress Note The patient was put into room 10 however she left within a few minutes of being placed in her room. She was not examined by me or any other staff we know of CHANG JENSEN DO Mar 26, 2019 13:02
== END 2019-03-26 13:15 | disposition left against medical advice (07) ==
LOC: E/R 12:25
DX: F99 Mental disorder, not otherwise specified (principal)
CPT/HCPCS: 99282

== ENCOUNTER 2019-03-28 18:42 | Emergency (ER) | payer SELFPAY ==
[~2019-03-28] VITALS: Ht 175.3 cm; Wt 68.9 kg
[2019-03-28 18:45] VITALS: BP 145/63; PULSE 85; RESP 17; Ht 175.3 cm; Wt 68.9 kg
== END 2019-03-28 19:10 | disposition left against medical advice (07) ==
LOC: E/R 18:42
DX: Z53.21 Procedure and treatment not carried out due to patient leaving prior to being seen by health care provider (principal)

== ENCOUNTER 2019-03-29 06:37 | Emergency (ER) | payer OTHER ==
[~2019-03-29] VITALS: Ht 175.3 cm; Wt 68.0 kg
[2019-03-29 06:39] VITALS: Ht 175.3 cm; Wt 68.0 kg
--- NOTE | 2019-03-29 07:16 | ERD ---
ER Documentation Chief Complaint Chief Complaint pt is bib self c/o SI x 2 1/2 hrs, no plan "just want to hurt myself" HPI 33-year-old undomiciled female history of depression, well-known to this ED presents to the ED initially complained of suicidal ideations. In contrast to the triage note she currently denies feeling depressed, thoughts of hurting herself or others. Patient just wants food in some place to rest. Otherwise asymptomatic. Denies chest pain, palpitations, shortness of breath, abdominal pain, nausea, vomiting, dysuria, polyuria, headache, neck pain or rash. No fevers or chills. ROS All systems reviewed and are negative except as per history of present illness. Medications Home Meds Active Scripts Olanzapine* (Zyprexa*) 10 Mg Tablet, 10 MG PO DAILY, #30 TAB Prov:OLESYA PRESTON MD 03/20/19 Allergies Allergies: Coded Allergies: Penicillins (Unverified Allergy, Mild, 03/12/19) PMhx/Soc Viewed. Homeless. History of Surgery: No Anesthesia Reaction: No Hx Neurological Disorder: No Hx Respiratory Disorders: No Hx Cardiac Disorders: No Hx Psychiatric Problems: Yes (Schizophrenia) Hx Miscellaneous Medical Probl: No Hx Alcohol Use: No Hx Substance Use: Yes (Meth) Hx Tobacco Use: No FmHx No family history relevant to presenting complaint Physical Exam Vitals Vital Signs Date Temp Pulse Resp B/P (MAP) Pulse Ox O2 O2 Flow FiO2 Time Delivery Rate 03/29/19 98.6 84 18 146/89 98 06:39 (108) Physical Exam Const: No acute distress, poor hygiene Head: Atraumatic Eyes: Normal Conjunctiva ENT: Normal External Ears, Nose and Mouth. Neck: Full range of motion. No meningismus. Resp: Clear to auscultation bilaterally Cardio: Regular rate and rhythm, no murmurs Abd: Soft, non tender, non distended. Normal bowel sounds Skin: No petechiae or rashes Back: No midline or flank tenderness Ext: No cyanosis, or edema Neur: Awake and alert Psychiatric: Cooperative, normal mood and affect mood and affect. Patient does not appear anxious or depressed. No suicidal/homicidal ideations. No hallucinations or delusions. No flight of ideas Procedures/MDM DOCUMENTS REVIEWED: ED nurse, prior records. Patient with multiple prior ED visits with the same presentation. REEXAMINATION/REEVALUATION: Time: 09:39. Well. Asymptomatic. Continues to de ny visual/auditory hallucinations, depression and SI/HI MEDICAL DECISION MAKIN-year-old undomiciled female history of depression, well-known to this ED presents to the ED initially complained of suicidal ideations but subsequently admitted she just wanted something to eat and a place to sleep for several hours. No SI/HI, visual/auditory hallucinations or grave disability. No indication for emergent psychiatric consultation. She is undomiciled but able to navigate the community and request to be discharged back to the street. Stable for discharge with precautionary instructions and outpatient follow-up as counseled. Counseled patient regarding diagnosis, diagnostic results and plan for admission. Departure Diagnosis: Primary Impression: Homelessness Additional Impression: H/O schizophrenia Condition: Stable RODRICK ANDRADE MD March 29, 2019 07:16
[2019-03-29 10:33] VITALS: BP 138/84; PULSE 78; RESP 16
== END 2019-03-29 10:34 | disposition home or self-care (01) ==
LOC: E/R 06:37
DX: F20.9 Schizophrenia, unspecified (principal); Z59.0 Homelessness
CPT/HCPCS: 99282

== ENCOUNTER 2019-03-31 05:05 | Emergency (ER) | payer SELFPAY | END 2019-03-31 05:14 | disposition left against medical advice (07) | LOC: E/R 05:05 | DX: Z53.21 Procedure and treatment not carried out due to patient leaving prior to being seen by health care provider (principal) ==

== ENCOUNTER 2019-04-01 13:17 | Emergency (ER) | payer SELFPAY | END 2019-04-01 17:26 | disposition left against medical advice (07) | LOC: E/R 13:17 | DX: Z53.21 Procedure and treatment not carried out due to patient leaving prior to being seen by health care provider (principal) ==

== ENCOUNTER 2019-04-16 04:08 | Emergency (ER) | payer SELFPAY ==
[~2019-04-16] VITALS: Wt 66.5 kg
[2019-04-16 04:10] VITALS: BP 140/91; PULSE 111; RESP 20
== END 2019-04-16 07:05 | disposition left against medical advice (07) ==
LOC: E/R 04:08
DX: Z53.21 Procedure and treatment not carried out due to patient leaving prior to being seen by health care provider (principal)

== ENCOUNTER 2019-04-27 22:00 | Emergency (ER) | payer OTHER ==
[~2019-04-27] VITALS: Ht 175.3 cm; Wt 67.9 kg
[2019-04-27 22:12] VITALS: Ht 175.3 cm; Wt 67.9 kg
--- NOTE | 2019-04-28 00:35 | ERD ---
ER Documentation Chief Complaint Chief Complaint suicidal ideations for a long time HPI This is a pleasant 33-year-old female who presents with "suicidal ideations". Patient is well-known to this ER, having multiple visits, for suicidal ideations, however usually the patient reports that as she is homeless, request food and halfway for the evening, and these are the real reason for her symptoms. She presents today similarly, stating that was cold outside, and was hungry, and does not actually feel suicidal. She denies any recent trauma, no recent overdoses. ROS All systems reviewed and are negative except as per history of present illness. Medications Home Meds Active Scripts Olanzapine* (Zyprexa*) 10 Mg Tablet, 10 MG PO DAILY, #30 TAB Prov:OLESYA PRESTON MD 03/20/19 Allergies Allergies: Coded Allergies: Penicillins (Unverified Allergy, Mild, 03/12/19) PMhx/Soc History of Surgery: No Anesthesia Reaction: No Hx Neurological Disorder: No Hx Respiratory Disorders: No Hx Cardiac Disorders: No Hx Psychiatric Problems: Yes (Schizophrenia) Hx Miscellaneous Medical Probl: No Hx Alcohol Use: No Hx Substance Use: Yes (Meth) Hx Tobacco Use: No Smoking Status: Never smoker Physical Exam Vitals Vital Signs Date Temp Pulse Resp B/P (MAP) Pulse Ox O2 O2 Flow FiO2 Time Delivery Rate 04/27/19 98.2 92 18 131/82 100 22:12 (98) Physical Exam Const: Disheveled appearing, smiling, in no distress Head: Atraumatic Eyes: Normal Conjunctiva ENT: Normal External Ears, Nose and Mouth. Neck: Full range of motion. No meningismus. Resp: Clear to auscultation bilaterally Cardio: Regular rate and rhythm, no murmurs Abd: Soft, non tender, non distended. Normal bowel sounds Skin: No petechiae or rashes Back: No midline or flank tenderness Ext: No cyanosis, or edema Neur: Awake and alert Psych: Normal Mood and Affect Procedures/MDM This is a pleasant 33-year-old female presents for evaluation of "suicidal ideation". Patient has had multiple visits for the same complaint, she was offered food, and felt better, she had no plan, at this point, I feel the patient is safe for discharge home, social work was offered to her. At discharge the patient was in no distress. Departure Diagnosis: Primary Impression: Suicidal ideation Condition: Stable Patient Instructions: Recognizing Suicide Warning Signs in Others Additional Instructions: Call your primary care doctor TOMORROW for an appointment during the next 2-3 days.See the doctor sooner or return here if your condition worsens before your appointment time. OLESYA MILLER MD Apr 28, 2019 00:35
[2019-04-28 02:53] VITALS: BP 125/73; PULSE 76; RESP 18
== END 2019-04-28 02:53 | disposition home or self-care (01) ==
LOC: E/R 22:00
DX: R45.851 Suicidal ideations (principal); Z59.0 Homelessness
CPT/HCPCS: 99282

== ENCOUNTER 2019-04-28 07:20 | Emergency (ER) | payer OTHER ==
[~2019-04-28] VITALS: Ht 175.3 cm; Wt 67.0 kg
[2019-04-28 07:23] VITALS: BP 134/89; PULSE 84; RESP 18; Ht 175.3 cm; Wt 67.0 kg
--- NOTE | 2019-04-28 07:44 | ERD ---
ER Documentation Chief Complaint Chief Complaint SUICIDAL IDEATION WITH PLAN HPI Patient is a 33-year-old female who presents saying that she was suicidal. When I asked her if she is still suicidal she said "now not suicidal anymore". She says "now just hungry". Upon review of old medical record she has multiple visits to the ER for similar type complaints and I am well familiar with her as well as her nursing staff. Review of the emergency department information exchange system shows visits to 3 separate emergency departments for a total of 101 visits over the past 1 year. ROS All systems reviewed and are negative except as per history of present illness. Medications Home Meds Active Scripts Olanzapine* (Zyprexa*) 10 Mg Tablet, 10 MG PO DAILY, #30 TAB Prov:OLESYA PRESTON MD 03/20/19 Allergies Allergies: Coded Allergies: Penicillins (Unverified Allergy, Mild, 03/12/19) PMhx/Soc History of Surgery: No Anesthesia Reaction: No Hx Neurological Disorder: No Hx Respiratory Disorders: No Hx Cardiac Disorders: No Hx Psychiatric Problems: Yes (Schizophrenia) Hx Miscellaneous Medical Probl: No Hx Alcohol Use: No Hx Substance Use: Yes (Meth) Hx Tobacco Use: No Smoking Status: Never smoker FmHx Family History: No diabetes Physical Exam Vitals Vital Signs Date Temp Pulse Resp B/P (MAP) Pulse Ox O2 O2 Flow FiO2 Time Delivery Rate 04/28/19 98.1 84 18 134/89 99 07:23 (104) Physical Exam Const: No acute distress Head: Atraumatic Eyes: Normal Conjunctiva ENT: Normal External Ears, Nose and Mouth. Neck: Full range of motion. No meningismus. Resp: Clear to auscultation bilaterally Cardio: Regular rate and rhythm, no murmurs Abd: Soft, non tender, non distended. Normal bowel sounds Skin: No petechiae or rashes Back: No midline or flank tenderness Ext: No cyanosis, or edema Neur: Awake and alert Psych: Denies suicidal ideation Procedures/MDM Patient is a 33-year-old female who presents with malingering. She denies suicidal ideation at this time and says "can I does have a sandwich". I do not believe she requires further work-up or admission to the hospital at this time. She does not meet 5150 criteria. The patient was given a sandwich and milk and was told that she should not come back solely for housing and food in the future. She was provided with a list of the local shelters and I told her to go to 1 of the shelters immediately after discharge. She can return for any worsening symptoms. Departure Diagnosis: Primary Impression: Homeless Additional Impression: Depression Depression Type: unspecified Qualified Codes: F32.9 - Major depressive disorder, single episode, unspecified Condition: Fair Patient Instructions: Depression Referrals: COMM[facility] YOU HAVE RECEIVED A MEDICAL SCREENING EXAM AND THE RESULTS INDICATE THAT YOU DO NOT HAVE A CONDITION THAT REQUIRES URGENT TREATMENT IN THE EMERGENCY DEPARTMENT. FURTHER EVALUATION AND TREATMENT OF YOUR CONDITION CAN WAIT UNTIL YOU ARE SEEN IN YOUR DOCTORS OFFICE WITHIN THE NEXT 1-2 DAYS. IT IS YOUR RESPONSIBILITY TO MAKE AN APPOINTMENT FOR FOLOW-UP CARE. IF YOU HAVE A PRIMARY DOCTOR --you should call your primary doctor and schedule an appointment IF YOU DO NOT HAVE A PRIMARY DOCTOR YOU CAN CALL OUR PHYSICIAN REFERRAL HOTLINE AT IF YOU CAN NOT AFFORD TO SEE A PHYSICIAN YOU CAN CHOSE FROM THE FOLLOWING [facility] CLINICS [facility] [address] [facility] [address] [facility] [facility] [address] [facility] [address] [facility] [address] [facility] [facility]. [address] Additional Instructions: Call your primary care doctor TOMORROW for an appointment during the next 1-2 days.See the doctor sooner or return here if your condition worsens before your appointment time. JAIME HERNANDEZ MD Apr 28, 2019 07:44
== END 2019-04-28 07:39 | disposition home or self-care (01) ==
LOC: E/R 07:20
DX: F32.9 Major depressive disorder, single episode, unspecified (principal); Z59.0 Homelessness
CPT/HCPCS: 99282

== ENCOUNTER 2019-07-27 15:35 | Emergency (ER) | payer OTHER ==
[~2019-07-27] VITALS: Ht 175.3 cm; Wt 69.4 kg
[~2019-07-27 15:35] MED LIST changes: +OLAN10TA32 PO
[2019-07-27 15:56] VITALS: Ht 175.3 cm; Wt 69.4 kg
[2019-07-27 18:00] VITALS: BP 113/78; PULSE 78; RESP 18
== END 2019-07-27 18:06 | disposition home or self-care (01) ==
LOC: E/R 15:35
DX: Z59.0 Homelessness (principal)
CPT/HCPCS: 81025; Z7502; 99282

== ENCOUNTER 2019-07-27 20:06 | Emergency (ER) | payer OTHER ==
[~2019-07-27] VITALS: Ht 188 cm; Wt 68.6 kg
[2019-07-27 20:07] VITALS: Ht 188 cm; Wt 68.6 kg
[2019-07-28 10:32] VITALS: BP 104/69; PULSE 68; RESP 18
== END 2019-07-28 10:32 | disposition home or self-care (01) ==
LOC: E/R 20:06
DX: R45.851 Suicidal ideations (principal); R40.2142 Coma scale, eyes open, spontaneous, at arrival to emergency department; R40.2252 Coma scale, best verbal response, oriented, at arrival to emergency department; R40.2362 Coma scale, best motor response, obeys commands, at arrival to emergency department
CPT/HCPCS: 80053; 80307; 85025; Z7502; 99283

== ENCOUNTER 2019-07-29 08:21 | Emergency (ER) | payer OTHER ==
[~2019-07-29] VITALS: Ht 175.3 cm; Wt 63.6 kg
[2019-07-29 08:29] VITALS: BP 132/67; PULSE 78; RESP 18; Ht 175.3 cm; Wt 63.6 kg
== END 2019-07-29 08:54 | disposition home or self-care (01) ==
LOC: E/R 08:21
DX: R45.851 Suicidal ideations (principal)
CPT/HCPCS: 99282

== ENCOUNTER 2019-09-27 20:08 | Emergency (ER) | payer OTHER ==
[~2019-09-27] VITALS: Ht 175.3 cm; Wt 69.1 kg
[~2019-09-27 20:08] MED LIST changes: +NITR100C6 ORAL; +SERT-165 ORAL
[2019-09-27 20:13] VITALS: Ht 175.3 cm; Wt 69.1 kg
[2019-09-27 22:42] VITALS: BP 92/57; PULSE 72; RESP 16
== END 2019-09-27 22:44 | disposition home or self-care (01) ==
LOC: E/R 20:08
DX: R45.851 Suicidal ideations (principal)
CPT/HCPCS: 80053; 80307; 81025; 85025; Z7502; 99282